=== PATIENT | male | born 1950 | race Caucasian/White ===

== ENCOUNTER 2020-02-21 16:05 | Emergency (ER) | payer MEDICARE, SELFPAY ==
--- NOTE | ~2020-02-21 | CT_ITS ---
EXAMINATION: CT chst ab pel natalia lum w DATE: 02/21/2020 18:07 INDICATION: Pain at the chest, abdomen, pelvis and right hip after being pinned by a collapsed roof. TECHNIQUE: Computed tomography (CT) of the chest, abdomen and pelvis and thoracic and lumbar spine wa s performed with 100 mL Omnipaque-350 intravenous contrast. Automated exposure control and iterative reconstruction technique were employed. The dose-length product was 3672.34 mGy-cm. COMPARISON: None FINDINGS: Chest and thoracic spine: Calcified nodules in the right lower lobe and calcified mediastinal lymph nodes consistent with old g ranulomatous disease. Lungs are otherwise clear with no pneumonia, pulmonary edema or other pulmonary infiltrates. No pleural effusion or pneumothorax. Heart size is normal. No pericardial effusion. Tho racic aorta is normal in caliber with no dissection or acute traumatic aortic injury. No pathological ly enlarged thoracic lymphadenopathy. Mild thoracic spondylosis with bridging osteophytes at multiple levels in the thoracic and lower cervical spine consistent with diffuse idiopathic skeletal hyperost osis (DISH). No acute osseous abnormality in the chest or thoracic spine. Likely symmetric fatty atro phy of the bilateral subscapularis muscles which could be due to innervation changes or chronic rotat or cuff tears. Mild bilateral gynecomastia. Abdomen, pelvis and lumbar spine: Liver, gallbladder, spleen, pancreas, bilateral adrenal glands and right kidney are normal. 1 mm nono bstructing stone at the lower pole of the left kidney. Bowels including the appendix are normal. Blad salvador is normal. No free intraperitoneal gas or fluid. No pathologically enlarged abdominal or pelvic l ymphadenopathy. Small fat-containing right inguinal hernia. Combined instrumented anterior and stock raiser ior spinal fusion at L5-S1 which is fused with residual grade 1 anterolisthesis. Chronic bilateral L5 pars interarticularis defects. 2 mm retrolisthesis L1 on L2, L2 on L3 and L4 on L5. Mild disc height loss at T12-L1. No acute osseous abnormality in the lumbar spine or pelvis. IMPRESSION: 1. No acute fracture or acute intrathoracic, abdominal or pelvic process. 2. Nonobstructing 1 mm left renal stone. 3. Mild thoracic and lumbar spondylosis with instrumented anterior and posterior spinal fusion at L5- S1 for chronic spondylolysis. Reviewed, dictated and finalized at location A. IMPRESSION: 1. No acute fracture or acute intrathoracic, abdominal or pelvic process. 2. Nonobstructing 1 mm left renal stone. 3. Mild thoracic and lumbar spondylosis with instrumented anterior and posterio r spinal fusion at L5-S1 for chronic spondylolysis.
--- NOTE | ~2020-02-21 | XR_ITS ---
EXAMINATION: XR forearm RT 2V, XR wrist RT min 3V DATE: 02/21/2020 17:40 INDICATION: Right wrist and forearm pain and abrasions postoperative collapse TECHNIQUE: 1. Posteroanterior, ulnar deviation, oblique, and lateral views of the right wrist were obtained. 2. Anteroposterior and lateral views of the right forearm were obtained. COMPARISON: none FINDINGS: Bone alignment is normal from the right elbow through the wrist and visualized right hand. No fractur e. Mild polyarticular osteoarthritis at the right elbow and radial aspect of the carpus. Soft tissue swelling over the dorsal aspect of the mid to distal forearm. There are few foci of lucent gas in the underlying soft tissues consistent with provided history of abrasions. No right elbow joint effusion . IMPRESSION: 1. No acute osseous abnormality. Reviewed, dictated and finalized at location A. IMPRESSION: 1. No acute osseous abnormality.
[2020-02-21 16:21] VITALS: BP 148/72; PULSE 68; RESP 18; TEMP 37; O2SAT 98
[2020-02-21] MEDS: TETANUS,DIPHTHERIA,AC PERTUSSIS ADULT 0.5 ML (ADACEL) IM (16:41)
[2020-02-21] MEDS: NEOMYCIN/POLYMYXIN/BACITRACIN OINTMENT 15 GM TUBE 1 APPLIC TOPICAL (17:00)
[2020-02-21 17:18] LABS: Hematocrit 43.8 % (37.0-46.0); Hemoglobin 14.6 g/dL (12.4-15.3); Mean Corpuscular HGB Conc 33.3 g/dL (32.0-36.0); Mean Corpuscular Hemoglobin 30.4 pg (27.0-31.0); Mean Corpuscular Volume 91.3 fL (78.0-102.0); Mean Platelet Volume 9.9 fl (8.7-11.0); Platelet Count Result 187 K/mm3 (150-420); Red Cell Distribution Width 12.9 % (11.6-14.4); White Blood Count 8.4 K/mm3 (4.8-10.8)
[2020-02-21 17:19] LABS: Add Urine Microscopic? YES; Appearance Urine Clear (Clear); Bilirubin Urine Negative (Negative); Blood Urine Negative (Negative); Color Urine Yellow (Yellow); Glucose Urine UA Negative (Negative); Ketones Urine Negative (Negative); Leukocyte Esterase Ur Negative (Negative); Nitrate Urine Negative (Negative); Protein Urine Trace (Negative); Specific Grav Ur >= 1.030 (1.010-1.020); Urobilinogen Urine 0.2 mg/dL (0.2-1.0); pH Urine 5.5 (5.0-8.0)
[2020-02-21 17:24] LABS: RBC Urine 0-2 /hpf (0-2); Squamous Epithelial Cell Urine Rare /hpf (Few); WBC Urine 0-3 /hpf (0-3)
[2020-02-21 17:25] LABS: Bacteria Urine Trace /hpf; Other Sediment Urine Spermatazoa /hpf
[2020-02-21 17:34] LABS: Alanine Aminotransferase 38 U/L (16-63); Albumin Level 4.1 g/dL (3.4-5.0); Anion Gap 9.1 mmol/L (7-16); Aspartate Amino Transferase 31 U/L (15-37); Bilirubin,Total 0.6 mg/dL (0.00-1.00); Blood Urea Nitrogen 24 mg/dL (7-18); Calcium 9.7 mg/dL (8.5-10.1); Carbon Dioxide 33 mmol/L (21-32); Chloride 104 mmol/L (98-108); Estimated CRCL calculation 57 ml/min; Estimated Glomerular Filt Rate 53; Glucose 105 mg/dL (70-99); Osmolality Calculated 298 mOsm/kg (285-295); Potassium 4.1 mmol/L (3.5-5.1); Sodium 142 mmol/L (136-145); Total Protein 7.4 g/dL (6.4-8.2)
[2020-02-21 17:57] LABS: Alkaline Phosphatase 113 U/L (46-116)
[2020-02-21 18:04] VITALS: BP 163/88; PULSE 75; RESP 18; O2SAT 98
--- NOTE | 2020-02-21 18:37 | WC.ED.TRAUMA ---
HPI - Trauma General Chief Complaint: Trauma Stated Complaint: roof fell on PT Source: patient Mode of arrival: ambulatory Limitations: no limitations History of Present Illness HPI narrative: Shortly before arrival at 4:21 p.mCarlene Orr had the metal roof of a chicken coup collapse on him. He realized the roof was falling forward towards him, triedz to hold it up while he got out of the way but fell backwards with it pinning his his chest and abdomen. He complains only of pain in his lower back made worse with sitting, improved with lying supine or standing. It is not associated with weakness in extremities. He sustained abrasions to the right arm and forearm. He feels swelling in the right forearm; denies numbness, pain, or tingling in his right hand. He is able to move his fingers and wrist without pain. He also complains of soreness in his right hip and right upper back. He denies headache, confusion, dizziness, shortness of breath, chest pain, abdominal pain, nausea, vomiting, pelvis, or lower extremity pain. Related Data Home Medications Medication Instructions Recorded Confirmed atorvastatin 20 mg PO DAILY 02/21/20 02/21/20 losartan-hydrochlorothiazide 1 tablet PO DAILY 02/21/20 02/21/20 metoprolol succinate 25 mg PO DAILY 02/21/20 02/21/20 Allergies Allergy/AdvReac Type Severity Reaction Status Date / Time No Known Allergies Allergy Verified 02/21/20 16:21 Review of Systems Constitutional: Constitutional: Denies chills and Denies fever(s) ENT: Denies dizziness Cardiovascular: Cardiovascular: Reports no additional cardiovascular complaints Respiratory: Respiratory: Reports no additional respiratory complaints Gastrointestinal: Gastrointestinal: Reports no additional gastrointestinal complaints Genitourinary: Genitourinary: Denies hematuria Musculoskeletal: Musculoskeletal: Reports no additional musculoskeletal complaints Integumentary/Breasts: Skin/Breast: Reports system reviewed and no additional complaints, except as docu Neurologic: Denies confusion and Denies headache(s) Hematologic/Lymphatic: Hematologic/Lymphatic: Denies easy bruising PMFSH Past Medical History Medical History (Updated 02/23/20 @ 12:15 by Dilshad Burgos MD) Hyperlipidemia Hypertension Spondylolisthesis of lumbar region Surgical History Surgical History (Updated 02/23/20 @ 12:15 by Dilshad Burgos MD) History of lumbar laminectomy Social History Social History (Updated 02/23/20 @ 12:16 by Dilshad Burgos MD) 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 Exam Const: Orientation/consciousness: patient oriented x3 Other: Patient walked in. HENMT: Head: no hematomas and no lacerations Ears: TM's normal bilaterally General nose exam: No nasal discharge present Mouth: Yes Normal oral and palatal mucosa present Other: No scalp abrasions, swelling, discoloration or tenderness. Eyes: EOM: EOMs intact bilaterally Neck: Neck: no lymphadenopathy Chest: Chest palpation & inspection: no tenderness Resp: Auscultation: clear to auscultation bilaterally and no wheezes Cardio: Rate: regular rate Rhythm: regular rhythm GI: GI Palp: Yes Soft to palpation, No Tenderness to palpation present (GI), No Guarding due to palpation present (GI) and No Rigid due to palpation : General: Yes no CVA tenderness Back/Spine/Pelvis: Other: Minor tenderness without swelling or bruising, right upper back. Tender over L3 and the paraspinal muscles. Midline scar from L4 down to mid-sacral area Skin: Other: Oblique, linear abrasions across the right posterior-lateral forearm. Large abrasion right mid-posterior forearm overlying a tender and swollen area. Abrasions anterior legs without swelling. Neuro: General: patient oriented x3, moves all extremities and no focal motor deficits Extrem: Other: Moves all joints without complaints of pain Minor tenderness posterior to the r
[2020-02-21 19:11] VITALS: BP 161/91; PULSE 68; RESP 16; O2SAT 98
== END 2020-02-21 19:25 | disposition home or self-care (01) ==
PROVIDERS: Emergency Provider Family Medicine; PCP Family Medicine
DX: S50.01XA Contusion of right elbow, initial encounter (principal); S70.01XA Contusion of right hip, initial encounter; S39.012A Strain of muscle, fascia and tendon of lower back, initial encounter; S29.012A Strain of muscle and tendon of back wall of thorax, initial encounter; S40.811A Abrasion of right upper arm, initial encounter; S80.812A Abrasion, left lower leg, initial encounter; S80.811A Abrasion, right lower leg, initial encounter; W20.1XXA Struck by object due to collapse of building, initial encounter
CPT/HCPCS: 36415; 71260; 72129; 72132; 73090; 73110; 74177; 80053; 81001; 85027; 90471; 90715; 99283; 99284; A9270; Q9965

== ENCOUNTER 2020-02-28 15:56 | Outpatient (RCR) | payer MEDICARE, SELFPAY ==
--- NOTE | 2020-03-06 21:26 | PTOPEVAL ---
Thank you for referring Kirby Hannah to [facility]. Please review, sign, date and return this plan of care MAXINE. I agree with and certify that the following plan of care is medically necessary. Referring Physician Date Admitting Provider: Attending Provider: Michael Chapman MD Referring Provider: *PT Outpatient Evaluation Start: 02/28/20 16:13 Freq: Status: Active Protocol: Document 02/28/20 16:15 JTF (Rec: 02/28/20 16:55 J [id number]) Therapy Assessment Status Assessment Status Assessment Status Evaluation Outpatient Past Medical History Cardiovascular History Hx Hypercholesterolemia Yes Hx Hypertension Yes Respiratory History Hx Sleep Apnea Yes Musculoskeletal History Hx Other Musculoskeletal Disorders Yes: back surgery Evaluation Information Problem Diagnosis low back pain Onset 02/21/20 Additional Evaluation Detail oswestry = 20% Subjective Information patient reports he injured his Query Text:As Reported By Patient/ back about a week ago when he Family was pinned under a collapsed building. he reports he was at his house tearing down a chicken house when the roof came loose and pinned him down . he reports he was pinned for about 10 minutes. he reports he felt he injured his back when he slammed into the ground. he reports no ntb into the legs. he reports he has a history of fusion to the lumbar spine. he reports his L5-S1 is fused. he reports he has increased pain in the back when lying down in a soft bed . he reports he has been wearing a back brace since the accident. he reports the pain is centralizing to his lumbar spine. Prior Level of Function Comments Additional Prior Level of Function patient reports prior to his Comments injury, he had no issues in the back. he reports he is active around his home. Pain Assessment Timing of Pain Assessment Timing of Pain Assessment Assessment Pain Scale Pain Scale Used Numeric (1 - 10) Self Report Pain Assessment Lower Back Reported Pain Level 2 Pain Description Feng
== END 2020-03-28 14:35 | disposition home or self-care (01) ==
LOC: CHSPT 15:56
PROVIDERS: PCP Family Medicine; Visit Provider Family Medicine
DX: M54.5 Low back pain (principal)
CPT/HCPCS: 97014; 97110; 97140; 97161; G0283

== ENCOUNTER 2021-04-16 09:55 | Outpatient (CLI) | payer MEDICARE, SELFPAY ==
[2021-04-16 11:04] LABS: SARS-CoV-2 RNA PCR Negative (Negative)
== END 2021-04-16 09:56 | disposition home or self-care (01) ==
LOC: CHSLAB 10:00
PROVIDERS: PCP Family Medicine; Visit Provider Family Medicine
DX: R05 Cough (principal); Z20.822 Contact with and (suspected) exposure to COVID-19
CPT/HCPCS: C9803; U0003; U0005

== ENCOUNTER 2021-11-14 07:47 | Outpatient (CLI) | payer MEDICARE, SELFPAY ==
[2021-11-14 08:53] LABS: SARS-CoV-2 Ag Negative (Negative)
== END 2021-11-14 07:48 | disposition home or self-care (01) ==
LOC: CHSLAB 07:50
PROVIDERS: PCP Family Medicine; Visit Provider Family Medicine
DX: R05.9 Cough, unspecified (principal); Z20.822 Contact with and (suspected) exposure to COVID-19
CPT/HCPCS: 87426; C9803

== ENCOUNTER 2022-05-20 10:21 | Outpatient (CLI) | payer MEDICARE, SELFPAY ==
--- NOTE | ~2022-05-20 | XR_ITS ---
EXAMINATION: XR hip RT min 2V DATE: 05/20/2022 11:13 INDICATION: Right hip pain TECHNIQUE: Two views of right hip were obtained. COMPARISON: None. FINDINGS: Bone alignment is normal. There is no fracture. There is mild osteoarthritis of the right h ip. There are partially imaged surgical changes in the lumbar spine. The soft tissues are unremarkabl e. IMPRESSION: 1. Mild osteoarthritis of the right hip. Reviewed, dictated and finalized at location B.
--- NOTE | ~2022-05-20 | XR_ITS ---
EXAM: XR knee LT 3V DATE: 05/20/2022 11:10 HISTORY: chronic LT pain knee upon initially standing all over , NKI . COMPARISON: None available. FINDINGS: Normal mineralization. No fracture or dislocation. No lytic or blastic lesion. Moderate me dial joint space narrowing. Tricompartmental osteophytosis, severe in the patellofemoral compartment and moderate medial and lateral compartments. No erosion or periosteal change. Soft tissues within no rmal limits. Small knee joint effusion. IMPRESSION: Moderate to severe tricompartmental left knee osteoarthritis. Reviewed, dictated and finalized at location K.
== END 2022-05-20 10:22 | disposition home or self-care (01) ==
LOC: CHSIMG 10:25
PROVIDERS: PCP Family Medicine; Visit Provider Family Medicine
DX: M25.562 Pain in left knee (principal); M25.551 Pain in right hip
CPT/HCPCS: 73502; 73562

== ENCOUNTER 2022-06-09 10:03 | Outpatient (RCR) | payer MEDICARE, SELFPAY ==
--- NOTE | 2022-06-09 11:01 | PTOPEVAL1 ---
Assessment and note entered by Geovany Hwang Evaluation Information Assessment Status Evaluation Diagnosis left knee pain Onset 09/07/21 Subjective Information Pt. reports that he has been having knee pain since September. He reports that he was tiling a field and twisted his knee about that time. He reports that he had mild pain prior to that incident. He reports that pain was located on both the inside and the outside of the left knee. He is taking an anti-inflammatory currently which is helping to ease the knee pain. He currently is not experiencing knee pain. He notes that pain is most notable after he has been active. He reports that his goal is to reduce knee pain. Reported Pain Level Pain Score 0: Self Report Assessment PT Clinical Summary Pt. is a 72 year old male who enters the clinic with left knee pain due to arthritic change. He presents with impaired strength, impaired gait, pain and joint stiffness. Continued treatment is indicated in order to improve these areas to allow the pt. to be able to complete all IADL's with improved comfort and efficiency. Plan of Care Interventions Electrical Stimulation,Gait Training,Hot Pack/Cold Pack,Manual Therapy,Neuro Re-education, Therapeutic Activities,Therapeutic Exercise PT Services Indicated Yes Treatment Frequency and 1x/week x 4 weeks Duration These treatments will address the objective and functional deficits as defined above. The patient will be advanced safely and appropriately in order for the patient to progress towards his/her prior level of function. Additional exercises will be introduced and as well as a comprehensive home exercise program upon discharge, if needed, ?to ensure carryover of functional gains achieved in the clinic. This treatment plan has been reviewed and agreement upon by the patient.
== END 2022-06-30 13:41 | disposition home or self-care (01) ==
LOC: CHSPT 10:03
DX: M17.9 Osteoarthritis of knee, unspecified (principal)
CPT/HCPCS: 97110; 97161

== ENCOUNTER 2022-09-02 13:51 | Emergency (ER) | payer MEDICARE, SELFPAY ==
--- NOTE | 2022-09-02 13:55 | ED.URI ---
HPI - URI/Sore Throat General Chief Complaint: Upper Respiratory Infection Stated Complaint: head cold Time Seen by Provider: 09/02/22 14:08 Source: patient and RN notes reviewed Mode of arrival: ambulatory Limitations: no limitations History of Present Illness HPI Narrative: 72-year-old male presents with concern for 3-4 day history nasal congestion, rhinorrhea, she cough. Reports symptoms got worse last night. He has been using saline rinses and Mucinex. He denies fever, chills, sweats, body aches MD elicited complaint: cough and sore throat Related Data Home Medications Medication Instructions Recorded Confirmed atorvastatin 20 mg tablet 20 mg PO DAILY 02/21/20 02/21/20 losartan 50 mg-hydrochlorothiazide 1 tablet PO DAILY 02/21/20 02/21/20 12.5 mg tablet metoprolol succinate 25 mg 25 mg PO DAILY 02/21/20 02/21/20 tablet,extended release 24 hr meloxicam 7.5 mg tablet mg 09/02/22 Allergies Allergy/AdvReac Type Severity Reaction Status Date / Time No Known Allergies Allergy Verified 02/11/22 14:43 Review of Systems Review of Systems: CONSTITUTIONAL: Denies malaise, chills, sweats, or fever. EYES: Denies visual changes, redness, or discharge. ENT: Reports rhinorrhea, congestion. Denies sinus pain, otalgia and sore throat. CARDIOVASCULAR: Denies chest pain, palpitations, or edema. RESPIRATORY: Reports cough. Denies dyspnea. GASTROINTESTINAL: Denies abdominal pain, nausea, vomiting, diarrhea SKIN: Denies rash or itching. MUSCULOSKELETAL: Denies myalgia. NEUROLOGIC: Denies headache. All systems reviewed & are unremarkable except as noted in HPI and below PMFSH Past Medical History Medical History (Updated 09/02/22 @ 14:25 by Samira Colin NP) Hyperlipidemia Hypertension Spondylolisthesis of lumbar region Surgical History Surgical History (System 02/11/22 @ 14:43 by Foster Fisher) History of lumbar laminectomy Family History Family History (System 02/11/22 @ 14:43 by Foster Fisher) Other Family history of arthritis Family history of malignant neoplasm Family history of mental disorder Hypertension Social History Social History (System 02/11/22 @ 14:43 by Foster Fisher) Smoking status: Former smoker Alcohol intake: current 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 Comments At time of signature, agree with nursing past medical, surgical, social and family history. There is no relevant family history pertinent to the presenting complaint Exam Narrative: GENERAL: Well-appearing, well-nourished, and in no acute distress. HEAD: Normocephalic EYES: PERRLA, conjunctivae clear ENT: Nares clear, turbinates edematous and erythematous, clear discharge. Mucous membranes moist. TM pearly pa with sharp light reflex bilaterally; no tragal tenderness. Oropharynx not erythematous without lesions. Tonsils not enlarged and without exudate, no drooling, no hoarseness, no trismus, uvula midline. NECK: Supple. No lymphadenopathy CHEST: Clear to auscultation, breath sounds equal. No wheezing, rhonchi, rales, or stridor. No respiratory distress, speaks in full sentences. HEART: Regular rate and rhythm. No murmur heard. SKIN: Warm, dry, no rash. NEURO: Alert and oriented x3. PSYCH: Normal mood and affect Course Course Emergency Course: Patient is aware of diagnosis, understands and agrees to treatment plan. Anticipatory guidance given. Patient agrees to follow-up as directed and is aware of reasons to seek care at the emergency department. Portions of this record may have been created with voice recognition software Level of Care: Express Care Visit Vital Signs Vital signs: Reviewed. MDM - URI/Sore Throat MDM Narrative Medical decision making narrative: Differential diagnosis considered: Sunshine virus, strep pharyngitis, allergic rhinitis, upper respiratory tract infection, sinusitis, rhinosinusitis, nasopharyngitis. viral pharyngitis, otitis media, o
[2022-09-02 14:00] VITALS: BP 149/82; PULSE 82; RESP 16; TEMP 36.2; O2SAT 99
== END 2022-09-02 14:29 | disposition home or self-care (01) ==
PROVIDERS: Emergency Provider Nurse Practitioner; PCP Family Medicine
DX: J06.9 Acute upper respiratory infection, unspecified (principal); R05.9 Cough, unspecified; Z20.822 Contact with and (suspected) exposure to COVID-19; Z87.891 Personal history of nicotine dependence; E78.5 Hyperlipidemia, unspecified; I10 Essential (primary) hypertension; M43.16 Spondylolisthesis, lumbar region
CPT/HCPCS: 87426; 87804; 99213; C9803; G0463

== ENCOUNTER 2023-09-26 10:45 | Emergency (ER) | payer MEDICARE, SELFPAY ==
[2023-09-26 10:55] VITALS: BP 141/79; PULSE 69; RESP 16; TEMP 37.8; O2SAT 98
--- NOTE | 2023-09-26 11:44 | ED.GENADULT ---
HPI - General Adult General Chief complaint: Upper Respiratory Infection Stated complaint: Congestion/Sore Throat/Cough/Fever Source: patient Mode of arrival: ambulatory Limitations: no limitations History of Present Illness HPI narrative: Patient presents for evaluation of sick symptoms. He initially had a scratchy throat 5 days ago. He then developed a dry cough, wheezing, headache, fatigue, and fever. No nausea, vomiting, diarrhea, or SOB. He took some nyquil which helped him get some rest. No recent specific sick contacts however he went to a meeting at which there was a large crowd. He does not smoke. Related Data Home Medications Medication Instructions Recorded Confirmed atorvastatin 20 mg tablet 20 mg PO DAILY 02/21/20 02/21/20 losartan 50 mg-hydrochlorothiazide 1 tablet PO DAILY 02/21/20 02/21/20 12.5 mg tablet metoprolol succinate 25 mg 25 mg PO DAILY 02/21/20 02/21/20 tablet,extended release 24 hr Allergies Allergy/AdvReac Type Severity Reaction Status Date / Time No Known Allergies Allergy Verified 09/26/23 10:54 Review of Systems Review of Systems: CONSTITUTIONAL: Reports fever. Denies chills, or sweats. EYES: Denies visual changes, redness, or discharge. ENT: Reports sinus congestion CARDIOVASCULAR: Denies chest pain, palpitations, or edema. RESPIRATORY: Reports cough. Denies dyspnea. GASTROINTESTINAL: Denies abdominal pain, nausea, vomiting, or diarrhea. GENITOURINARY: Denies dysuria or hematuria. SKIN: Denies rash or itching. MUSCULOSKELETAL: Denies back pain, joint pain, or myalgia. NEUROLOGIC: Reports headache, Denies numbness, dizziness, or weakness. PSYCHIATRIC: Denies anxiety or depression. 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 Gender identity (if verbalized by the patient): Male Sexual Orientation (if Verbalized by the Patient): Straight or Heterosexual Spiritual care concerns: No Exam Narrative: GENERAL: Well-appearing, well-nourished, and in no acute distress. HEAD: Normocephalic, atraumatic. EYES: PERRLA and EOMI. ENT: Nares clear, no rhinorrhea or epistaxis. Mucous membranes moist. Oropharynx without tonsillar hypertrophy exudate or other lesions. Bilateral TMs pearly pa nonbulging NECK: Supple. No adenopathy or masses. No carotid bruits or JVD CHEST: Cough present on exam. There is wheezing in posterior lung caal bilaterally. HEART: Regular rate and rhythm. No murmur heard. Normal peripheral pulses. ABDOMEN: Soft, nontender, nondistended, normal active bowel sounds. EXTREMITIES: Normal range of motion. No edema. SKIN: Warm, dry, no rash. NEURO: No focal deficits. Alert and oriented x3. PSYCH: Normal mood and affect. Course Course Emergency Course: This is a 73-year-old male who presented for evaluation of sick symptoms. COVID negative. Influenza A positive. Will treat with Tamiflu. He has wheezing on exam so will treat with prednisone. Saturations are normal. Increase hydration. [id number] agents for symptom management. Follow up with primary provider. Go to the ER for worsening symptoms. Patient in agreement with plan of care. Level of Care: Express Care Visit Vital Signs
== END 2023-09-26 11:52 | disposition home or self-care (01) ==
LOC: EXPBETH 10:49
PROVIDERS: Emergency Provider Nurse Practitioner; PCP Family Medicine
DX: J10.1 Influenza due to other identified influenza virus with other respiratory manifestations (principal); Z20.822 Contact with and (suspected) exposure to COVID-19; Z87.891 Personal history of nicotine dependence; E78.5 Hyperlipidemia, unspecified; I10 Essential (primary) hypertension; M43.16 Spondylolisthesis, lumbar region
CPT/HCPCS: 87081; 87426; 87804; 87880; 99213; G0463

== ENCOUNTER 2023-12-22 09:30 | Outpatient (RCR) | payer MEDICARE, SELFPAY ==
--- NOTE | 2023-12-22 11:24 | OPREHPOC ---
Outpatient Therapy Plan of Care This is a Multidisciplinary Plan of Care that may contain components documented by all disciplines (PT, OT, and ST.) PT Problem 1 PT Problem #1 Knowledge Deficit PT Goal 1 Goal Patient to demonstrate independence with HEP Target Visit 5 PT Problem 2 PT Problem #2 Pain PT Goal 1 Goal 1. Patient to report highest pain at 2/10 2. Patient to report ability to sleep with no disturbance due to low back pain Target Visit 10 PT Problem 3 PT Problem #3 Impaired Strength PT Goal 1 Goal 1. Patient to demonstrate 5/5 B hip strength to return to lifting for house hold tasks 2. Patient to demonstrate 4/5 core strength to return to yard maintenance without increase in pain Target Visit 10 PT Problem 4 PT Problem #4 Impaired Functional Mobil PT Goal 1 Goal 1. Patient to score <20% disability on Back Index 2. Patient to demonstrate ability to fern picker object off of ground with no increase in low back pain 3. Patient to report ability to work in his yard > 1 hour without increase in low back pain Target Visit 10
--- NOTE | 2023-12-22 11:24 | PTOPEVAL1 ---
Assessment and note entered by Lucy Crowe DPT Evaluation Information Assessment Status Evaluation Diagnosis low back pain, SIJ pain Onset 12/15/23 Subjective Information Patient reports about a month ago he felt like he mis-stepped and felt a jar and pinch in his back . He reports for the next week he had decreased mobility and increased pain. He reports he then started a muscle relaxer and after a week pain somewhat subsided. He has seen an ortho and was given a round of steroids and an order for PT. Patient reports pain is at the R SIJ but denies radiating pain. Patient reports that twisting and lifting increase his pain. He reports he is using a brace when he is doing heavy work. 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 He does not have a follow up with ortho for his back. He is scheduled for a knee replacement in February. Reported Pain Level Pain Score 5: Self Report Assessment PT Clinical Summary Mr. Hannah is a 73 year old male who presents to PT with low back pain s/p L2-3 discectomy. He demonstrates decreased B LE strength, impaired gait mechanics and elevated pain levels leading to difficulty with standing for house hold tasks and ambulating prolonged distances for grocery shopping and yard work. He would benefit from skilled PT to address impairments and return to PLOF. Plan of Care Interventions Electrical Stimulation,Gait Training,Hot Pack/Cold Pack,Manual Therapy,Mechanical Traction,Neuro Re- education,Patient/Caregiver Educati,Therapeutic Activities,Therapeutic Exercise PT Services Indicated Yes Treatment Frequency and 2x weekly for 10 visits Duration These treatments will address the objective and functional deficits as defined above. The patient will be advanced safely and appropriately in order for the patient to progress towards his/her prior level of function. Additional exercises will be introduced and as well as a comprehensive home exercise program upon discharge, if needed, ?to ensure carryover of functional gains achieved in the clinic. This treatment plan has been reviewed and agreement upon by the patient.
--- NOTE | 2024-01-21 11:56 | OPREHPOC ---
Outpatient Therapy Plan of Care This is a Multidisciplinary Plan of Care that may contain components documented by all disciplines (PT, OT, and ST.) PT Problem 1 PT Problem #1 Knowledge Deficit PT Goal 1 Goal Patient to demonstrate independence with HEP Target Visit 5 Progress Met PT Problem 2 PT Problem #2 Pain PT Goal 1 Goal 1. Patient to report highest pain at 2/10 2. Patient to report ability to sleep with no disturbance due to low back pain Target Visit 10 Progress Met PT Problem 3 PT Problem #3 Impaired Strength PT Goal 1 Goal 1. Patient to demonstrate 5/5 B hip strength to return to lifting for house hold tasks -partially met 2. Patient to demonstrate 4/5 core strength to return to yard maintenance without increase in pain -met Target Visit 10 Progress Partially Met PT Problem 4 PT Problem #4 Impaired Functional Mobil PT Goal 1 Goal 1. Patient to score <20% disability on Back Index 2. 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 Patient to report ability to work in his yard > 1 hour without increase in low back pain Target Visit 10 Progress Met
--- NOTE | 2024-01-21 11:56 | PTOPDC ---
Assessment and note entered by Amanda Tim, PT Evaluation Information Assessment Status Discharge Diagnosis low back pain, SIJ pain Onset 12/15/23 Subjective Information Kirby Hannah reports his low back pain has improved over the course of his PT. He notes he has to be careful lifting and performing too much activity but overall he feels has improved 80%. He will be having his left knee replaced in February 2024. Reported Pain Level Pain Score 2: Self Report Assessment PT Clinical Summary Av Hannah has completed 10 skilled PT visits for low back and SIJ pain. He is reporting an 80% overall improvement since initiating PT. He demonstrates resolved tenderness in the right lower back, improved lumbar AROM, improved core strength, and improved functional abilities. He will be discharged to an independent home exercise program. Plan of Care PT Services Indicated No
== END 2024-01-21 14:47 | disposition home or self-care (01) ==
LOC: CHSPT 09:30
DX: M46.1 Sacroiliitis, not elsewhere classified (principal)
CPT/HCPCS: 97014; 97110; 97140; 97161; 97750; G0283

== ENCOUNTER 2024-01-26 15:20 | Outpatient (RCR) | payer MEDICARE, SELFPAY ==
--- NOTE | 2024-01-26 16:15 | OPREHPOC ---
Outpatient Therapy Plan of Care This is a Multidisciplinary Plan of Care that may contain components documented by all disciplines (PT, OT, and ST.) PT Problem 1 PT Problem #1 Knowledge Deficit PT Goal 1 Goal The patient will be independent in a home exercise program. Target Visit 2 PT Problem 2 PT Problem #2 Impaired Range of Motion PT Goal 1 Goal The patient will demonstrate 0-120 degrees of left knee AROM to improve gait and pre-op ROM. Target Visit 4 PT Problem 3 PT Problem #3 Impaired Strength PT Goal 1 Goal The patient will demonstrate at least 4+/5 left quad, hamstring, and glut strength to increase support for the left knee. Target Visit 4 PT Problem 4 PT Problem #4 Impaired Functional Mobil PT Goal 1 Goal The patient will demonstrate 25% or less self perceived disability per the LEFS. Target Visit 4
--- NOTE | 2024-01-26 16:15 | PTOPEVAL1 ---
Assessment and note entered by Amanda Tim, PT Evaluation Information Assessment Status Evaluation Diagnosis L knee OA, pre-op L TKA Onset 11/27/23 Subjective Information Av Hannah reports he will have his left knee replaced on 02/16/24 due to bone on bone deformity. He notes pain in the left knee worsened about 6 months ago when the cortisone injections quit helping. He is noting pain worse with getting up out of a chair and going up and down stairs. He is taking stairs one at a time currently. He also has a bad right knee and has pain in that one with bending. Reported Pain Level Pain Score 4: Self Report Assessment PT Clinical Summary Kirby Hannah presents with left knee pain due to osteoarthritis. He is scheduled to have his knee replaced on 02/16/24. He is reporting difficulty with going up and down stairs and getting out of chairs. He demonstrates decreased right knee flexion and extension AROM, decreased right knee strength, altered gait, and decreased balance. He will benefit from skilled PT to improve ROM, strength, and balance prior to his surgery. Plan of Care Interventions Electrical Stimulation,Hot Pack/Cold Pack,Manual Therapy,Neuro Re-education,Patient/Caregiver Educati,Therapeutic Activities,Therapeutic Exercise PT Services Indicated Yes Treatment Frequency and 2 times a week for 4 visits Duration These treatments will address the objective and functional deficits as defined above. The patient will be advanced safely and appropriately in order for the patient to progress towards his/her prior level of function. Additional exercises will be introduced and as well as a comprehensive home exercise program upon discharge, if needed, ?to ensure carryover of functional gains achieved in the clinic. This treatment plan has been reviewed and agreement upon by the patient.
--- NOTE | 2024-02-04 09:41 | OPREHPOC ---
Outpatient Therapy Plan of Care This is a Multidisciplinary Plan of Care that may contain components documented by all disciplines (PT, OT, and ST.) PT Problem 1 PT Problem #1 Knowledge Deficit PT Goal 1 Goal The patient will be independent in a home exercise program. Target Visit 2 Progress Met PT Problem 2 PT Problem #2 Impaired Range of Motion PT Goal 1 Goal The patient will demonstrate 0-120 degrees of left knee AROM to improve gait and pre-op ROM. Target Visit 4 Progress Partially Met Comment Met for flexion, progress towards extension PT Problem 3 PT Problem #3 Impaired Strength PT Goal 1 Goal The patient will demonstrate at least 4+/5 left quad, hamstring, and glut strength to increase support for the left knee. Target Visit 4 Progress Met PT Problem 4 PT Problem #4 Impaired Functional Mobil PT Goal 1 Goal The patient will demonstrate 25% or less self perceived disability per the LEFS. Target Visit 4 Progress Not Met Comment progress towards, scored 27.5% today
--- NOTE | 2024-02-04 09:42 | PTOPPROG ---
Assessment and note entered by Amanda Tim, PT Evaluation Information Assessment Status Progress Diagnosis L knee OA, pre-op L TKA Onset 11/27/23 Subjective Information Av Hannah reports his left knee is doing well overall. He does still have stiffness most of the time that is worse first thing in the morning and after prolonged sitting. He notes pain when he first stands up from sitting. He has been performing his home exercises daily and will continue until his surgery that is scheduled for . Assessment PT Clinical Summary Av Hannah has completed 4 skilled PT visits for left knee pain and pre-op PT for a L TKA. He is reporting stiffness in the left knee and pain upon standing. He has been performing his HEP daily. He objectively demonstrates improved left knee extension AROM and improved strength. Left knee flexion AROM has been maintained since initiating PT and is improved by end of the session after stretching. He will be put on hold from skilled PT until his surgery. He was instructed to continue his home exercises. PT will be resumed once his surgeon releases him. Plan of Care Interventions Therapeutic Exercise PT Services Indicated Yes Treatment Frequency and PT on hold until after surgery scheduled for These treatments will address the objective and functional deficits as defined above. The patient will be advanced safely and appropriately in order for the patient to progress towards his/her prior level of function. Additional exercises will be introduced and as well as a comprehensive home exercise program upon discharge, if needed, ?to ensure carryover of functional gains achieved in the clinic. This treatment plan has been reviewed and agreement upon by the patient.
--- NOTE | 2024-02-23 16:02 | OPREHPOC ---
Outpatient Therapy Plan of Care This is a Multidisciplinary Plan of Care that may contain components documented by all disciplines (PT, OT, and ST.) PT Problem 1 PT Problem #1 Knowledge Deficit PT Goal 1 Goal The patient will be independent in a home exercise program. Target Visit 2 Progress Met PT Problem 2 PT Problem #2 Impaired Range of Motion PT Goal 1 Goal The patient will demonstrate 0-120 degrees of left knee AROM to improve gait. Target Visit 24 Progress Partially Met PT Problem 3 PT Problem #3 Impaired Strength PT Goal 1 Goal The patient will demonstrate at least 4+/5 left quad, hamstring, and glut strength to increase support for the left knee. Target Visit 24 Progress Met PT Problem 4 PT Problem #4 Impaired Functional Mobil PT Goal 1 Goal 1. The patient will demonstrate 25% or less self perceived disability per the LEFS. 2. The patient will complete 1,200 feet of ambulation during the 6 minute walk test with the least restrictive assistive device to improve community ambulation. 3. The patient will ascend and descend stairs reciprocally with 2/10 or less left knee pain. Target Visit 24 Progress Not Met
--- NOTE | 2024-02-23 16:02 | PTOPREEVAL ---
Assessment and note entered by Amanda Tim, PT Evaluation Information Assessment Status Re-evaluation Diagnosis s/p L TKA Onset 02/16/24 Subjective Information Don reports he had his left knee replaced on . He spent one night in the hospital. He has been using a CPM about 2 hours a day all at once. He did not have home health PT. He has been doing some exercises at home consisting of standing leg kicks and modified squats. He has been using pain medication about 2 times a day. He notes difficulty sleeping, moving his knee, walking, and going up and down stairs. He has been using a walker since surgery. Reported Pain Level Pain Score 4: Self Report Assessment PT Clinical Summary Kirby Hannah presents for re-evaluation today after having his left knee replaced on 02/16/24. He is noting difficulty moving his knee, walking, standing, and going up and down stairs. He demonstrates decreased left knee AROM, decreased left knee and hip strength, impaired gait, and decreased functional abilities. He will benefit from skilled PT to address these limitations. Plan of Care Interventions Electrical Stimulation,Gait Training,Hot Pack/Cold Pack,Intermittent Compression,Manual Therapy, Neuro Re-education,Patient/Caregiver Educati, Therapeutic Activities,Therapeutic Exercise PT Services Indicated Yes Treatment Frequency and 2 times a week for 24 visits Duration These treatments will address the objective and functional deficits as defined above. The patient will be advanced safely and appropriately in order for the patient to progress towards his/her prior level of function. Additional exercises will be introduced and as well as a comprehensive home exercise program upon discharge, if needed, ?to ensure carryover of functional gains achieved in the clinic. This treatment plan has been reviewed and agreement upon by the patient.
--- NOTE | 2024-03-18 08:48 | OPREHPOC ---
Outpatient Therapy Plan of Care This is a Multidisciplinary Plan of Care that may contain components documented by all disciplines (PT, OT, and ST.) PT Problem 1 PT Problem #1 Knowledge Deficit PT Goal 1 Goal The patient will be independent in a home exercise program. Target Visit 2 Progress Met PT Problem 2 PT Problem #2 Impaired Range of Motion PT Goal 1 Goal The patient will demonstrate 0-120 degrees of left knee AROM to improve gait. Target Visit 24 Progress Partially Met PT Problem 3 PT Problem #3 Impaired Strength PT Goal 1 Goal The patient will demonstrate at least 4+/5 left quad, hamstring, and glut strength to increase support for the left knee. met Target Visit 24 Progress Met PT Problem 4 PT Problem #4 Impaired Functional Mobil PT Goal 1 Goal 1. The patient will demonstrate 25% or less self perceived disability per the LEFS. met 2. The patient will complete 1,200 feet of ambulation during the 6 minute walk test with the least restrictive assistive device to improve community ambulation. not met 3. The patient will ascend and descend stairs reciprocally with 2/10 or less left knee pain. met Target Visit 24 Progress Partially Met
--- NOTE | 2024-03-18 08:49 | PTOPDC ---
Assessment and note entered by JT File, PT Evaluation Information Assessment Status Discharge Diagnosis s/p L TKA Onset 02/16/24 Subjective Information patient reports he feels pretty good. he reports he is not using the cane. he reports he will take it sometimes on uneven terrain. he reports he does not follow up with the ortho until the first week of april. Reported Pain Level Pain Score 0: Self Report Assessment PT Clinical Summary Carlene cherry presents to skilled PT for his 10th skilled PT visit since his L TKA. he presents with little to no pain in the L knee, full L knee flexion and near full L knee extension rom, ambulation with reciprocal mechanics and no AD, reciprocal ambulation up and down steps, achievement of strength goals, and achievement of LEFS goal. he was educated in the needs to continue to work on HEP at home, but he will be DC 'd from skilled PT services at this time. patient was also instructed to follow up with PT if any concerns of regression arise. Plan of Care PT Services Indicated Yes
== END 2024-03-18 10:44 | disposition home or self-care (01) ==
LOC: CHSPT 15:20
PROVIDERS: Visit Provider Orthopaedic Surgery
DX: M17.12 Unilateral primary osteoarthritis, left knee (principal)
CPT/HCPCS: 97014; 97110; 97150; 97161; 97164; G0283

== ENCOUNTER 2024-03-07 13:45 | Emergency (ER) | payer MEDICARE, SELFPAY ==
[2024-03-07 13:56] VITALS: BP 137/62; PULSE 72; RESP 16; TEMP 36; O2SAT 98
--- NOTE | 2024-03-07 14:09 | ED.SKABFB ---
HPI - Skin/Abscess/Foreign Bdy General Chief complaint: Skin/Abscess/Foreign Body Stated complaint: Insect bite on back spreading Source: patient, RN notes reviewed and old records reviewed Mode of arrival: ambulatory Limitations: no limitations History of Present Illness HPI narrative: 74-year-old male to [facility] with complaint spider bite to right upper back. Patient states bite occurred while sleeping 3 nights ago. Patient states that the discomfort of the bite woke him from his sleep. Patient reports that his cleaned the area and placed a bandage over it that evening and that he noticed increased redness, swelling, itching and discomfort the following day. patient reports keeping it clean, dry, and uncovered since then. Patient states he went to be seen to rule out concern for infection. Patient denies fever, body aches nausea, vomiting, headache, allergies. Patient in no acute distress. Related Data Home Medications Medication Instructions Recorded Confirmed atorvastatin 20 mg tablet 10 mg PO DAILY 02/21/20 02/21/20 losartan 50 mg-hydrochlorothiazide 1 tablet PO DAILY 02/21/20 02/21/20 12.5 mg tablet metoprolol succinate 25 mg 25 mg PO DAILY 02/21/20 02/21/20 tablet,extended release 24 hr CORWIN-COLACE 03/07/24 aspirin 81 mg tablet mg PO 03/07/24 ferrous sulfate 03/07/24 hydrocodone 5 mg-acetaminophen 325 tablet 03/07/24 mg tablet Allergies Allergy/AdvReac Type Severity Reaction Status Date / Time No Known Allergies Allergy Verified 09/26/23 10:54 Review of Systems Review of Systems: All systems reviewed & are unremarkable except as noted in HPI and below Constitutional: Constitutional: Reports as per HPI, Denies body ache(s), Denies chills, Denies excessive sweating, Denies fatigue, Denies fever(s) and Denies headache(s) Eyes: Eyes: Reports no additional eye complaints ENT: Reports system reviewed and no additional complaints, except as documented Cardiovascular: Cardiovascular: Reports no additional cardiovascular complaints, Denies chest pain and Denies dyspnea Respiratory: Respiratory: Reports no additional respiratory complaints, Denies cough and Denies dyspnea Musculoskeletal: Musculoskeletal: Reports no additional musculoskeletal complaints Integumentary/Breasts: Skin/Breast: Reports erythema and Reports wounds Comments: Patient endorses erythematous area around known spider bite to right upper back Neurologic: Reports system reviewed and no additional complaints, except as documented Psychiatric: Psychiatric: Reports no additional psychiatric complaints PMFSH Past Medical History Medical History Hyperlipidemia Hypertension Spondylolisthesis of lumbar region Surgical History Surgical History History of lumbar laminectomy Family History Family History Other Family history of arthritis Family history of malignant neoplasm Family history of mental disorder Hypertension Social History Social History Smoking status: Former smoker Alcohol intake: current Substance use: never Living arrangements: with family 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 Gender identity (if verbalized by the patient): Male Sexual Orientation (if Verbalized by the Patient): Straight or Heterosexual Spiritual care concerns: No Comments At the time of my signature, I reviewed and agree with the nursing past medical, surgical, social, and family history. There is no relevant family history pertinent to the patient complaint. Exam Const: General: cooperative, healthy appearing, comfortable, no acute distress, alert and well nourished Nutritional Appearance: well nourished Orientat
== END 2024-03-07 14:39 | disposition home or self-care (01) ==
PROVIDERS: Emergency Provider Nurse Practitioner Family; PCP Family Medicine
DX: S20.461A Insect bite (nonvenomous) of right back wall of thorax, initial encounter (principal); W57.XXXA Bitten or stung by nonvenomous insect and other nonvenomous arthropods, initial encounter; Z87.891 Personal history of nicotine dependence; E78.5 Hyperlipidemia, unspecified; I10 Essential (primary) hypertension; M43.16 Spondylolisthesis, lumbar region
CPT/HCPCS: 99211; G0463

== ENCOUNTER 2024-10-23 15:16 | Emergency (ER) | payer MEDICARE, SELFPAY ==
--- OUTSIDE RECORDS SUMMARY | 2024-10-23 15:18 | XMS_ITS | Referral Summary ---
Author Organization [facility] [address] Address [address] [place] [address] Care Team Providers Care Manager City Name Role Phone Michael Chapman MD Primary Care Provide r Encounters Date Type Department Care Team Description 09/13/2024 1:00 PM FUNERAL HOME ASSOCIATE Office Visit [facility] Ophthalmology [facility] [address] [place] [phone] Ngozi Kam MD PhD Cystoid macular edema of left eye (Primary Dx) 08/03/2024 8:30 AM FUNERAL HOME ASSOCIATE Office Visit [facility] Ophthalmology [address] [place] [address] [phone] Ngozi Kam MD PhD Cystoid macular edema of left eye (Primary Dx) from Last 3 Months Allergies No known active allergies Medications atorvastatin (LIPITOR) 10 mg tabletIndication s:hyperlipidemia Take 1 tablet (10 mg total) by mouth nightly 9 Active metoprolol XL (TOPROL-XL) 50 mg extended release tablet Take 1 tablet (50 mg total) by mouth daily Active losartan-hydroch lorothiazide (HYZAAR) 100-25 mg per tablet Take 1 tablet by mouth daily Active aspirin 81 mg enteric coated tabletIndication s:Myocardial Reinfarction Prevention Take 1 tablet (81 mg total) by mouth 2 (two) times a day 30 tablet 4 Active senna-docusate (PERICOLACE) 8.6-50 mg Take 1-2 tablets daily prn for constipation 30 tablet 4 Active HYDROcodone-acet aminophen (NORCO) 5-325 mg per tabletIndication s:Pain Take 1 tablet by mouth every 4 (four) hours as needed for pain 40 tablet 4 Active Active Problems Problem Noted Date Diagnosed Date Cystoid macular edema of left eye 05/31/2024 Assessment & Plan (05/31/2024 2:57 PM CDT): Marked central cystoid macular edema (CME) with decreased visual acuity (VA) per patient 1.5 months ago. 2/2 radiation retinopathy with CWS and mild irh on exam. Discussed R/B/A of anti-VEGF and patient wishes to proceed. Radiation retinopathy, sequela 05/31/2024 S/P total knee replacement, left 02/16/2024 Primary osteoarthritis of left knee 01/21/2024 Refractive error 05/04/2023 Assessment & Plan (01/08/2024 9:22 AM CDT): Release updated glasses Rx Assessment & Plan (05/04/2023 9:14 AM CDT): Minimal change in MRx today, updated SRx for PAL. 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 Kam. Assessment & Plan (05/04/2023 9:13 AM CDT): Return as scheduled for 4 mo f/u w/ Dr. Kam 07/21/23. Assessment & Plan (11/13/2022 1:50 PM FUNERAL HOME ASSOCIATE): Status post external plaque radiation, noted to be class 1A PRAME negative recommend observation today. I have asked that he return to see Dr. Kam in 4-6 months. Assessment & Plan (02/15/2022 8:10 AM CDT): POD1 following EPR removal and muscle reinsertion OS Doing well, vision limited by RD/tumor. Start PF with taper 4-3-2-1-0 weekly, and tobra QID x1 week. Return precautions discussed. Assessment & Plan (02/11/2022 10:15 AM CDT): Post op day #1 status post (s/p)EPR with disinsertion rectus muscle and TV FNAB the left eye. Doing well. Tobradex ointment QID the left eye Lead Shield at all times Follow up for EPR removal as scheduled Thursday Tylenol/Advil PRN pain Immunizations Immunization Administration Dates Next Due Influenza, Quadrivalent, Hig h Dose, Preservative Free, Intrr 07/09/2021 Influenza, Quadrivalent, Split, Intramuscular Tdap 02/24/2020,02/21/2020 Social History Tobacco Use Types Packs/Day Years Used Date Smoking Tobacco: Never Smokeless Tobacco: Never Alcohol Use Standard Drinks/Week Comments No 0 (1 standard drink = 0.6 oz pur e alcohol) AUDIT-C Answer Date Recorded Q1: How often do you have a drink containing alc ohol? 2-4 times a month 02/16/2024 Q2: How many drinks containi ng alcohol do you have on a typical day when you are drinking? 1 or 2 02/16/2024 Q3: How often do you have si x or more drinks on one occasion? Never 02/16/2024 Personal Safety Answer Date Recorded Have you ever been in or are you currently in a harmful physical or emotional relationship or is someone making you feel afraid or unsafe? Denies 02/16/2024 Sex and Gender Information Value Date Recorded Sex Assigned at Not on file Legal Sex Male 6:57 PM FUNERAL HOME ASSOCIATE Gender Identity Not on file Sexual Orientation Not on file Last Filed Vital Signs Vital Sign Reading Time Taken Comments Blood Pressure 147/82 04/18/2024 9:52 AM CDT Pulse 56 04/18/2024 9:52 AM CDT Temperature 36.6 C (97.9 F) 04/18/2024 9:52 AM CDT Respiratory Rate 18 04/18/2024 9:52 AM CDT Oxygen Saturation 100% 04/18/2024 9:52 AM CDT Inhaled Oxygen Concentration - - Weight 99.6 kg (219 lb 9.6 oz) 04/18/2024 9:52 A M CDT Height 177.8 cm (5' 10 ) 04/11/2024 8:44 AM CDT Body Mass Index 31.51 04/11/2024 8:44 AM CDT Plan of Treatment Not on file Medical Devices Implanted Type Area Carburetor Specialist Device Identifier Shelf Expiration Date Model / Serial / Lot [employer]uy [employer] Attune Cruciate Retain Cementless Knee Left 7 Component Femoral [id number] - [id number] Implanted:Qty: 1 on 02/16/2024 by Chaim Olea MD at [facility] Left: Knee [employer] 10/07/2031 [id number] / / [id number] [employer] Attune Fb Tib Base Sz 7 Por [id number] - [id number] Implanted:Qty: 1 on 02/16/2024 by Chaim Olea MD at [facility] Left: Knee [employer] 11/04/2033 [id number] / / [id number] [employer] Insert Attune Left Medial Stabilized Size 7 5mm [id number] - [id number] Implanted:Qty: 1 on 02/16/2024 by Chaim Olea MD at [facility] Left: Knee [employer] [id number] 08/06/2030 [id number] / / [id number] Explanted Type Area Carburetor Specialist Device Identifier Shelf Expiration Date Model / Serial / Lot Isoaid Eye Plaque Kit Implanted:Qty: 1 on 02/10/2022 by Ngozi Kam MD PhD at [facility] Explanted:Qty: 1 on 02/14/2022 at [facility] Other - see comments Left: Eye Other [id number] 03/02/2022 IEPS / 0 / [id number] Description:Car Groomer - [id number] Order number - [id number] Procedures Procedure Name Priority Date/Time Associated Diagnosis Comments OCT, RETINA - OU - BOTH EYES Routine 09/13/2024 12:23 PM FUNERAL HOME ASSOCIATE Cystoid macular edema of left eye SUB-TENON'S INJECTION - OS - LEFT EYE Routine 08/03/2024 10:41 AM FUNERAL HOME ASSOCIATE Cystoid macular edema of left eye OCT, RETINA - OU - BOTH EYES Routine 08/03/2024 9:18 AM FUNERAL HOME ASSOCIATE Cystoid macular edema of left eye from Last 3 Months Results * OCT, Retina - OU - Both Eyes (09/13/2024 12:23 PM FUNERAL HOME ASSOCIATE) Anatomical Region Laterality Modality Head Optical Coherenc e Tomography Narrative 09/13/2024 12:23 PM FUNERAL HOME ASSOCIATE OD - normal foveal contour OS - mildly improved but residual moderate central cystoid macular edema (CME) , subretinal fluid (SRF) overlying lesion us Ngozi Kam MD PhD OPHTH TOMOGRAPHY Fin al Result * Sub-Tenon's Injection - OS - Left Eye (08/03/2024 10:41 AM FUNERAL HOME ASSOCIATE) Anatomical Region Laterality Modality Head Other Narrative 08/03/2024 10:41 AM FUNERAL HOME ASSOCIATE Time Out Informed consent was obtained after all risks, benefits and alternatives were explained to the patient. The patient understood, agreed and wished to proceed. Timeout was completed verifying the patient, procedure, laterality and allergies. Anesthesia Subconjunctival anesthesia was used. Anesthetic medications included Lidocaine 4%, Proparacaine 0.5%. Sub-Tenon's Preparation included 5% betadine to ocular surface, 10% betadine to eyelids. A 30 gauge needle was used. Pharmaceutical Medication: 40 mg triamcinolone 40 mg/mL Route: intraocular, Site: Left Eye [facility]: 7275-7122-65, Lot: [id number], Expiration date: 09/06/2025, Waste: 0 mL Post-op Post injection exam found visual acuity of at least counting fingers. the patient tolerated the procedure. there were no complications during today's treatment. The patient received written and verbal post procedure care education. Post injection medications were not given. The attending physician was present for the entire procedure. Notes Pt consented sub tenon OS 08/03/2024 Inferior Ngozi Kam MD PhD OPHTH CLINIC PROCEDU RES Final Result * OCT, Retina - OU - Both Eyes (08/03/2024 9:18 AM FUNERAL HOME ASSOCIATE) Anatomical Region Laterality Modality Head Optical Coherenc e Tomography Narrative 08/03/2024 9:18 AM FUNERAL HOME ASSOCIATE OD - normal foveal contour OS -increased central cystoid macular edema (CME) , subretinal fluid (SRF) overlying lesion Ngozi Kam MD PhD OPHTH TOMOGRAPHY [place] Result - Final from Last 3 Months Insurance MEDICARE [facility] MEDICARE BLUE CROSS MEDICARE SUPPLEMENT [facility] MEDICARE Advance Directives For more information, please contact: [phone] * Full Code (Latest Code Status on File) Date Activated Date Inactivated Comments 02/16/2024 4:10 PM 02/17/2024 4:15 PM Care Teams Manager City Relationship Specialty Start Date End Date Michael Chapman MD [address] [place] [address] PCP - General Family Medicine 08/27/17
--- OUTSIDE RECORDS SUMMARY | 2024-10-23 15:18 | XMS_ITS ---
Author Organization [facility] [address] Address [address] [place] [address] Care Team Providers Care Sales Activity Manager Name Role Phone Michael Chapman MD Primary Care Provide r Active Problems Problem Noted Date Diagnosed Date [...] 07/21/23. Assessment & Plan (11/13/2022 1:50 PM TECHNICAL ADVISOR): Status post external plaque radiation, noted to [...] removal as scheduled Thursday Tylenol/Advil PRN pain Current Treatment and Therapy Plans Hypertension* Plan Start Date:05/19/2022 Plan Provider:Alphonso Lock MD Linked Problems Choroidal malignant melanoma , left (HCC)Hypertension, unspecified type Treatment Medications No medications scheduled. IV MAINTENANCE THERAPY PLAN* Plan Start Date:05/19/2022 Plan Provider:Alphonso Lock MD Linked Problems Choroidal malignant melanoma , left (HCC) Treatment Medications No medications scheduled. Past Treatment and Therapy Plans No past plan information found. Radiation Treatments * Course C1 02/10/2022 - 02/10/2022 Treatment Period Energy Fraction Dose Fractions Total Dose Plans Planned LT_EYE 02/10/2022 - 02/10/2022 8,500 1 8,500 Reference Points Delivered LT_EYE 02/10/2022 - 02/10/2022 8,500 Lifetime Dose Tracking * Chemical Lifetime Dose Automatic Entry Manual Entr y DLP 5,842 mGycm 5,842 mGycm 0 mGycm
--- OUTSIDE RECORDS SUMMARY | 2024-10-23 15:18 | XMS_ITS | Clinical Summary ---
Author Organization [facility] [address] Address [address] [place] [address] Care Team Providers Care Road Mixer Operator Name Role Phone Michael Chapman MD Primary Care Provide r Allergies No known active allergies Medications atorvastatin [...] 07/21/23. Assessment & Plan (11/13/2022 1:50 PM SAP BUSINESS OBJECTS CONSULTANT): Status post external plaque radiation, noted to [...] removal as scheduled Thursday Tylenol/Advil PRN pain Encounters Date Type Department Care Team Description 09/13/2024 1:00 PM SAP BUSINESS OBJECTS CONSULTANT Office Visit [facility] Ophthalmology [address] [place] [address] [place] [phone] Ngozi Kam MD PhD Cystoid macular edema of left eye (Primary Dx) 08/03/2024 8:30 AM SAP BUSINESS OBJECTS CONSULTANT Office Visit [facility] Ophthalmology [address] [place] [phone] Ngozi Kam MD PhD Cystoid macular edema of left eye (Primary Dx) from Last 3 Months Immunizations Immunization Administration Dates Next Due Influenza, Quadrivalent, Hig h Dose, Preservative Free, Intrr 07/09/2021 Influenza, Quadrivalent, Split, Intramuscular Tdap 02/24/2020,02/21/2020 Surgical History Surgery Date Site/Laterality Comments BACK SURGERY 11/15/2014 anterior lumbar fusion and posterior lumbar fusion EYE SURGERY 02/10/2022 Left iodine plaque REPLACEMENT TOTAL KNEE 02/06/2024 - 03/06/2024 Left Medical History Medical History Date Comments Hypertension Sleep apnea 2007 uses cpap Cancer ([facility] ([facility]) 2021 cancer wi thin left eyeball, patient had radiation Family History Medical History Relation Name Comments Arthritis Brother Cancer Father Cataracts Father Arthritis Mother Cancer Mother Diabetes Mother Glaucoma Mother Heart disease Mother Hypertension Mother Stroke Mother Macular degeneration Mother's Brother Amblyopia Neg Hx Blindness Neg Hx Fuchs' dystrophy Neg Hx Retinal detachment Neg Hx Strabismus Neg Hx Thyroid disease Neg Hx Relation Name Status Comments Brother Father Mother Mother's Brother Social History Tobacco Use Types Packs/Day Years [...] on file Legal Sex Male 6:57 PM SAP BUSINESS OBJECTS CONSULTANT Gender Identity Not on file Sexual Orientation Not on file Obstetrics History Last Filed Vital Signs Vital Sign Reading [...] 04/11/2024 8:44 AM CDT Plan of Treatment Health Maintenance Due Date Last Done Comments Colon Cancer Screening-Colonoscopy 1950 Depression Screening 1950 Hepatitis C Screening 1950 Hepatitis B Screening 02/07/1970 Zoster Vaccine (1 of 2) 02/07/2002 Pneumococcal vaccine 65+ (1 of 1 - PCV) 02/07/2017 Well Visit 65+ 02/07/2017 Covid-19 Vaccine (5 - 2023-2 5 season) 2024 01/17/2022, 07/09/2021, 11/27/2020, Additional history exists Influenza Vaccine (#1) 2024 3, 07/09/2021, 07/13/2020 Fall Risk Assessment 02/15/2025 02/16/2024, 01/25/20 22 DTaP/Tdap/Td Vaccine (3 - Td or Tdap) 02/23/2030 02/24/2020, 02/21/2020 Medical Devices Implanted Type Area Advertising Agency Manager Device Identifier Shelf Expiration Date Model / Serial / Lot Depuy Orthopa[employer] Attune Cruciate Retain Cementless Knee Left 7 Component Femoral [id number] - [id number] Implanted:Qty: 1 on 02/16/2024 by Chaim Olea MD at [facility] Left: Knee [employer] 10/07/2031 [id number] / / [id number] Dep[employer] Attune Fb Tib Base Sz 7 Por [id number] - [id number] Implanted:Qty: 1 on 02/16/2024 by Chaim Olea MD at [facility] Left: Knee [employer] 11/04/2033 [id number] / / [id number] Depuy [employer] Insert Attune Left Medial Stabilized Size 7 5mm [id number] - [id number] Implanted:Qty: 1 on 02/16/2024 by Chaim Olea MD at [facility] Left: Knee [employer] [id number] 08/06/2030 [id number] / / [id number] Explanted Type Area Advertising Agency Manager Device Identifier Shelf Expiration Date Model / Serial / Lot Isoaid Eye Plaque Kit Implanted:Qty: 1 on 02/10/2022 by Ngozi Kam MD PhD at [facility] Explanted:Qty: 1 on 02/14/2022 at [facility] Other - see comments Left: Eye Other [id number] 03/02/2022 IEPS / 0 / [id number] Description:Blackener - [id number] Order number - [id number] Procedures Procedure Name Priority Date/Time Associated Diagnosis Comments OCT, RETINA - OU - BOTH EYES Routine 09/13/2024 12:23 PM SAP BUSINESS OBJECTS CONSULTANT Cystoid macular edema of left eye SUB-TENON'S INJECTION - OS - LEFT EYE Routine 08/03/2024 10:41 AM SAP BUSINESS OBJECTS CONSULTANT Cystoid macular edema of left eye OCT, RETINA - OU - BOTH EYES Routine 08/03/2024 9:18 AM SAP BUSINESS OBJECTS CONSULTANT Cystoid macular edema of left eye from Last 3 Months Results * OCT, Retina - OU - Both Eyes (09/13/2024 12:23 PM SAP BUSINESS OBJECTS CONSULTANT) Anatomical Region Laterality Modality Head Optical Coherenc e Tomography Narrative 09/13/2024 12:23 PM SAP BUSINESS OBJECTS CONSULTANT OD - normal foveal contour OS - mildly improved but residual moderate central cystoid macular edema (CME) , subretinal fluid (SRF) overlying lesion Ngozi Kam MD PhD OPHTH TOMOGRAPHY Fin al Result * Sub-Tenon's Injection - OS - Left Eye (08/03/2024 10:41 AM SAP BUSINESS OBJECTS CONSULTANT) Anatomical Region Laterality Modality Head Other Narrative 08/03/2024 10:41 AM SAP BUSINESS OBJECTS CONSULTANT Time Out Informed consent was obtained after [...] 40 mg/mL Route: intraocular, Site: Left Eye ND: [id number], Lot: [id number], Expiration date: 09/06/2025, Waste: 0 mL Post-op [...] OU - Both Eyes (08/03/2024 9:18 AM SAP BUSINESS OBJECTS CONSULTANT) Anatomical Region Laterality Modality Head Optical Coherenc e Tomography Narrative 08/03/2024 9:18 AM SAP BUSINESS OBJECTS CONSULTANT OD - normal foveal contour OS -increased central cystoid macular edema (CME) , subretinal fluid (SRF) overlying lesion Ngozi Kam MD PhD OPHTH TOMOGRAPHY [place] Result - Final from Last 3 Months Insurance MEDICARE [facility] Address: [address] [place] [address] MEDICARE BLUE CROSS MEDICARE SUPPLEMENT [facility] MEDICARE Advance Directives For more information, please contact: [phone] * Full Code (Latest Code Status on File) Date Activated Date Inactivated Comments 02/16/2024 4:10 PM 02/17/2024 4:[address] Mixer Operator Relationship Specialty Start Date End Date Michael Chapman MD [address] [place] [address] PCP - General Family Medicine 08/27/17
--- OUTSIDE RECORDS SUMMARY | 2024-10-23 15:19 | XMS_ITS | Data Portability ---
Author Organization [facility] Address [address] [place] [address] Assessment No assessment recorded. Plan of Treatment Reminders Order Date Submit Date Provider Last Modified By Organization Details Last Modified Time Details Appointments None recorde d. Lab HbA1c (hemogl obin A1c), blood 024 12/22/19 [email or web address] In-Office Order, Internal Use Only DO Not Attach Compendium DO Not Attach Compendium, Do Not Delete/merge, [id number] 22:19:37 Referral None recorde d. Procedures None recorde d. Surgeries None recorde d. Imaging None recorde d. Medication Orders None recorde d. Patient TargetsNo targets recorded. Patient Instructions Encounter Date Encounter Id Patient Instructions Last Modified By Organization Details Last Modified Time 12/22/2023 [id number] A healthy lifestyle: care instructions [email or web address] Not available 12/22/2023 22:19:36 Reason for Referral None Reported. Results Created Date Observation Date Name Description Value Unit Range Abnormal Flag Note LastModifiedBy Organization Detail LastModifiedTime 12/22/19 24 12/22/2023 HbA1c (hemo globi n A1c), blood HbA1c 6.2 Not Available In-Office Order Internal Use Only DO Not Attach Compendium DO Not Attach Compendium, Do Not Delete/merge, [id number] 12/22/2023 16:59:45 Result Notes None recorded. Problems Name Problem SNOMED Code Status Onset Date Resolution Date Notes Provider Name and Address Organization Details Recorded Time Obesity 026502591 Active 2023 Dawn Vital MD Attn: Rosie mckeon,[address] [facility], [place], [address], [facility] 4 22:21:57 Prediabetes 677077050 Active 2023 Dawn Vital MD Attn: Rosie mckeon,[address] [facility], [place], [address], [facility] - [facility] 4 22:21:56 Essential hypertension 02679476 Active 2023 Dawn Vital MD Attn: Rosie mckeon,[address] [facility], [place], [address], [facility] - [facility] 4 22:21:59 Problem Notes None recorded. Procedures Surgical History Date Name Laterality Status Provider Name and Address Organization Details Recorded Time Back Surgery completed [facility] 12/22/2023 16:37:09 primary posterior interbody fusion of joint of lumbar spine completed [facility] 12/22/2023 16:37:23 Imaging Results None recorded. Procedure Notes None recorded. Medical Equipment None Reported. Medications Name Sig Start Date Stop Date Status Note LastModified by Organization Details LastModified Time atorvastatin 10 mg tablet active Not Available Not Available No t Available lorazepam 0.5 mg tablet active Not Available Not Available No t Available oseltamivir 75 mg capsule TAKE 1 CAPSULE BY MOUTH EVERY 12 HOURS FOR 5 DAYS\ active Not Available Not Available No t Available prednisone 50 mg tablet TAKE 1 TABLET BY MOUTH EVERY DAY active Not Available Not Available No t Available metoprolol succinate ER 25 mg tablet,extended release 24 hr active Not Available Not Availabl e Not Available methylprednisol one 4 mg tablets in a dose pack active Not Available Not Available No t Available losartan 50 mg-hydrochlorot hiazide 12.5 mg tablet active Not Available Not Available Not Available ketoconazole 2 % topical cream active Not Available Not Availa ble Not Available aspirin 81 mg capsule Take 1 capsule every day by oral route. active Not Available Not Available No t Available Vitals Date Recorded Body height Body mass index (BMI) Body weight Body temperature Respiratory rate Oxygen saturation Oxygen saturation in Arterial blood by Pulse oximetry Heart rate Systolic blood pressure Diastolic blood pressure Provider Name and Address Organization Details Last Updated DateTime 4 177.8 cm 32.3 kg/m2 156947. 73 g 98.6 [degF] 18 /min 97 % 97 % 71 /min 153 mm[Hg] 97 mm[Hg] Ranjan sarmiento RMA [place] - [facility] 16:42:21 Social History Question Answer Notes LastModified by Organizat ion Details LastModified Time Tobacco Smoking Status Never Smoker Maliha LEGERA null, [place] - [facility] 12/22/2023 16:36:06 Do You Have An Advance Directive? Yes Information not available 12/22/2023 What Is Your Level Of Alcohol Consumption? Occasional Information not available 12/22/2023 How Many Years Have You Consumed Alcohol? 21 Information not available 12/22/2023 In The 14 Days Before Symptom Onset, Have You Had Close Contact With A Laboratory-confir med COVID-19 While That Case Was Ill? No Information not available 12/22/2023 In The 14 Days Before Symptom Onset, Have You Had Close Contact With A Person Who Is Under Investigation For COVID-19 While That Person Was Ill? No Information not available 12/22/2023 Have You Been To An Area Known To Be High Risk For COVID-19? No Information not available 12/22/2023 Are You Currently Employed? No Retired Information not available 12/22/2023 What Was The Date Of Your Most Recent Tobacco Screening? 12/22/2023 Information not available 12/22/2023 What Is Your Relationship Status? Information not available 12/22/2023 Are You Sexually Active? Yes Information not available 12/22/2023 Do You Have Smoke And Carbon Monoxide Detectors In Your Home? Yes Information not available 12/22/2023 Are You Passively Exposed To Smoke? Yes Information no t available 12/22/2023 Do You Use Any Illicit Or Recreational Drugs? No Information not available 12/22/2023 Has Tobacco Cessation Counseling Been Provided? No Information not available 12/22/2023 Do You Or Have You Ever Used Any Other Forms Of Tobacco Or Nicotine? No Information not available 12/22/2023 Sex: Male Functional Status None recorded. Mental Status None recorded. Family History Nothing Reported Notes:colon cancer mom and d ad mom had heart issues mom had HTN Medical History No medical history recorded. Immunizations Vaccine Type Date Status Note Provider Monroe archer and Address Organization Details Recorded Time SARS-COV-2 (COVID-19) vaccine, UNSPECIFIED 3 completed Lamontaisa Zumbrota RMA [place], [place] [facility] 12/22/2023 16:38:50 influenza, unspecified formulation 3 completed Lamontaisa Celso RMA [place], [place] [facility] 12/22/2023 16:39:13 Past Encounters Encounter ID Performer Location Encounter Start Date Encounter Closed Date Diagnosis/Indication Diagnosis SNOMED-CT Code Diagnosis ICD10 Code Diagnosis Note [id number] MD Fili Coley 14 IM 4 [facility] [address] [place] [address] 12/22/2023 16:25:35 12/28/2023 15:16:04 Essential hypertension 33931583 I10 BP elevated to 153/97. Home readings mostly in 120s/80s. Patient has been compliant with medication . Also completed recent course of steroids. Elevated BP may be secondary to steroids, back pain, setting in medical office, or subtherape utic control of essential HTN. Ideally would need more data of normal home readings to provide reassuranc e. Additional ly, patient is undecided on staying in this practice or returning to previous. Plan to follow-up in 2-3 weeks after back pain has been addressed and steroids have cleared system. - counselled pt on continuing current medication regimen- continue home BP measuremen ts daily at different times of day- follow-up with previous PCP or here in 2-3 weeks for further management Prediabetes 314135820 R7 3.03 POC A1c 6.2, in range for prediabete s. Given his age, tight glycemic control is less advantageo us in the long run. Plan to continue to eat balanced diet and maintain physical activity. - pt counselled on lifestyle modificati ons, endorses high motivation - pt provided prediabete s folder with resources- deferred referral to nutritioni st at this time; pt will utilize resources already available Obesity 057668472 E66.9 BMI 32.3. Ideally would be below 30 prior to total knee arthroplas ty. Pt endorses high motivation . - see prediabet es Health Concerns Section Related Observation LastModified by Organization Detai ls LastModified Time None Recorded Concern Status LastModified by Organization Details LastModified Time None Recorded Advance Directives Directive Y: Payers Encounter Date Sequence Insurance Name Policy Number Policy Hernandez Covered Member ID Hernandez Member ID Guarantor Name 12/22/2023 1 [place] Kirby Nieto Robles [id number] Kirby Nieto Robles 12/22/2023 2 [place] [id number] Kirby Nieto Robles [id number] Kirby A Robles Notes Date Note Type Note Provider Name and Address Organization Details Recorded Time 12/22/2023 text/html Kirby is a 73 y ear old with a history of choroidal malignant melanoma in remission, HTN, HLD, osteoarthritis, and Meniere's disease presenting for management of HTN. He was previously seen and orthopedic surgery clinic and is following-up to optimize BMI, HTN, and A1c prior to surgery. Also reports he was recently treated for lower back pain and just finished oral steroid taper 2 days ago. Also getting physical therapy for his back. He is undecided whether he wants to continue receiving care here or return to his previous doctor. He was seen 1 month ago. He reports he is here mainly at the urging of his , who believes his BP control is not tight enough. He reports measuring BP at home with new upper arm cuff, shows last few readings on stanislav. Has been 120s over 80s. Endorses BP is often high at doctor's offices. Is compliant with current medication. Preventive [facility] screening - patient's parents both had colon cancer. 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 Plan to follow-up with [facility] for further cancer screening. STI screening if change in sexual habits - same partner 47 years YAJAIRA 7, PHQ 2 - 0 LDCT chest yearly if 20 pack-year smoking hx and currently smoke or have quit within past 15 years - 10 pack year smoking history, quit 45 years ago Hgb A1c q3y if overweight/obese - POC 6.2 ASCVD risk calculation - already completed by previous doctor Prostate cancer screening: discuss risk and benefits; should have an individualized approach (until age 69) - reports father had bypass procedure for enlarged prostate. Further cancer screening per [facility] as above. Karen Lara MD Attn: Accounting[address] [facility], [place], [address], [place] - [facility] 12/27/2023 23:07:27
--- OUTSIDE RECORDS SUMMARY | 2024-10-23 15:19 | XMS_ITS | Clinical Summary ---
Author Organization [facility] Address [address] [place] [address] Care Team Providers Care Home Appliance Installer Name Role Phone Unavailable Primary Care Provider Unavailabl e Social History Tobacco Use Types Packs/Day Years Used Date Smoking Tobacco: Former Sex and Gender Information Value Date Recorded Sex Assigned at Not on file Legal Sex Male 11:01 PM CDT Gender Identity Not on file Sexual Orientation Not on file Last Filed Vital Signs Vital Sign Reading Time Taken Comments Blood Pressure 156/86 11/27/2011 3:47 PM CDT Pulse 80 11/27/2011 3:47 PM CDT Temperature - - Respiratory Rate 16 11/27/2011 3:47 PM CDT Oxygen Saturation - - Inhaled Oxygen Concentration - - Weight 97.5 kg (215 lb) 11/27/2011 3:47 PM CDT Height 177.8 cm (5' 10 ) 11/27/2011 3:47 PM CDT Body Mass Index 30.85 11/27/2011 3:47 PM CDT Plan of Treatment Health Maintenance Due Date Last Done Comments Colorectal Cancer Screening Colonoscopy (10 Years) 1950 Hepatitis C 02/07/1970 DTaP, Tdap and Td Vaccines ( 1 - Tdap) 02/07/1971 Zoster Vaccines (1 of 2) 02/07/2002 Pneumococcal Vaccine: 65+ Ye ars (1 of 1 - PCV) 02/07/2017 COVID-19 Vaccine ( - 2023-2 5 season) 2024 Influenza Adult (#1) 2024 RSV Immunization or 60+ Years (1 - 1-dose 75+ series) 02/07/2027 Meningococcal B Vaccine Aged Out No l onger eligible based on patient's age to complete this topic Meningococcal Vaccine Aged Out No ernestine byron eligible based on patient's age to complete this topic RSV Immunizations Under 20 Months Aged Out No longer eligible based on patient's age to complete this topic
--- OUTSIDE RECORDS SUMMARY | 2024-10-23 15:19 | XMS_ITS ---
Author Organization [facility] Address Unknown Encounters Encounter Performer Performer Role Encounter Diagnoses Location Date Discharge - Discharged to home or self care - Private home/apt. with no home health services [facility] 11/15/2014 02:45 pm EDT - 11/18/2014 10:40 am EDT Social History
[2024-10-23 15:27] VITALS: BP 148/73; PULSE 69; RESP 16; TEMP 37.2; O2SAT 98
--- NOTE | 2024-10-23 17:07 | ED_ITS ---
HPI - General Adult General Chief complaint: Upper Respiratory Infection Stated complaint: Congestion/Body Aches Source: patient Mode of arrival: ambulatory Limitations: no limitations History of Present Illness HPI narrative: Patient presents for evaluation of sick symptoms for the last 3 days. His initial symptom was sore throat. He then developed sinus congestion, postnasal drainage, cough, generalized body aches, hot flashes and chills. No nausea, vomiting, diarrhea. No recent sick contacts to his knowledge. He is taking sudafed for his symptoms. He does not smoke. Related Data Home Medications ?Medication ?Instructions ?Recorded ?Confirmed ?Last Taken ?Type atorvastatin 20 mg tablet 10 mg PO DAILY 02/21/20 10/23/24 Unknown History losartan 50 mg-hydrochlorothiazide 1 tablet PO DAILY 02/21/20 10/23/24 Unknown History 12.5 mg tablet metoprolol succinate 25 mg 25 mg PO DAILY 02/21/20 10/23/24 Unknown History tablet,extended release 24 hr aspirin 81 mg tablet mg PO 03/07/24 Unknown History Allergies Allergy/AdvReac Type Severity Reaction Status Date / Time No Known Allergies Allergy Verified 10/23/24 15:19 Review of Systems Review of Systems: CONSTITUTIONAL: Reports hot flashes and chills EYES: Denies visual changes, redness, or discharge. ENT: Reports sore throat, sinus congestion, postnasal drainage CARDIOVASCULAR: Denies chest pain, palpitations, or edema. RESPIRATORY: Reports cough. Denies shortness of breath. GASTROINTESTINAL: Denies abdominal pain, nausea, vomiting, or diarrhea. GENITOURINARY: Denies dysuria or hematuria. SKIN: Denies rash or itching. MUSCULOSKELETAL: Reports generalized body aches NEUROLOGIC: Denies headache, numbness, dizziness, or weakness. PSYCHIATRIC: Denies anxiety or depression. 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 Gender identity (if verbalized by the patient): Male Sexual Orientation (if Verbalized by the Patient): Straight or Heterosexual Spiritual care concerns: No Exam Narrative: GENERAL: Well-appearing, well-nourished, and in no acute distress. HEAD: Normocephalic, atraumatic. EYES: PERRLA and EOMI. ENT: Nares clear, no rhinorrhea or epistaxis. Mucous membranes moist. Orophar ynx without tonsillar hypertrophy exudate or other lesions. Bilateral TMs pearly pa nonbulging NECK: Supple. No adenopathy or masses. No carotid bruits or JVD CHEST: Clear to auscultation. No respiratory distress. No wheezes rales or rhonchi HEART: Regular rate and rhythm. No murmur heard. Normal peripheral pulses. ABDOMEN: Soft, nontender, nondistended, normal active bowel sounds. EXTREMITIES: Normal range of motion. No edema. SKIN: Warm, dry, no rash. NEURO: No focal deficits. Alert and oriented x3. PSYCH: Normal mood and affect. Course Course Emergency Course: This is a 74-year-old male who presented for evaluation of sick symptoms. Influenza negative. COVID positive. We discussed treatment options. Patient would like to be treated with Paxlovid. I advised that there are many drug to drug interactions and some patients who take Paxlovi developed rebound symptoms. He verbalized understanding. He would like to proceed with therapy. Increase hydration. Luua-hsj-rukaqba agents for symptom management. Follow up with primary provider. Go to the ER for worsening symptoms. Patient in agreement with plan of care. Level of Care: Express Care Visit Vital Signs Vital signs: Vital Signs Temperature 37.2 C 10/23/24 15:27 Pulse Rate 69 10/23/24 15:27 Respiratory Rate 16 10/23/24 15:27 Blood Pressure 148/73 H 10/23/24 15:27 Pulse Oximetry 98 10/23/24 15:27 Oxygen Delivery Room Air 10/23/24 15:27 Temperature 37.2 C 10/23/24 15:27 Pulse Rate 69 10/23/24 15:27 Respiratory Rate 16 10/23/24 15:27 Blood Pressure 148/73 H 10/23/24 15:27 Pulse Oximetry 98 10/23/24 15:27 Oxygen Delivery Room Air 10/23/24 15:27 Medical Decision Making Vital Signs Vital Signs: Vital Signs Temperature 37.2 C 10/23/24 15:27 Pulse Rate 69 10/23/24 15:27 Respiratory Rate 16 10/23/24 15:27 Blood Pressure 148/73 H 10/23/24 15:27 Pulse Oximetry 98 10/23/24 15:27 Oxygen Delivery Room Air 10/23/24 15:27 Temperature 37.2 C 10/23/24 15:27 Pulse Rate 69 10/23/24 15:27 Respiratory Rate 16 10/23/24 15:27 Blood Pressure 148/73 H 10/23/24 15:27 Pulse Oximetry 98 10/23/24 15:27 Oxygen Delivery Room Air 10/23/24 15:27 Discharge Plan Discharge Clinical Impression: COVID Patient Disposition: Home, Self-Care Condition: Stable Instructions: Antibiotic Form, COVID-19 (Coronavirus Disease 2019) (ED) Additional Instructions: THE FOLLOWING MEDICATIONS MAY HELP YOUR SYMPTOMS: COUGH AND NASAL DRAINAGE: MUCINEX DM OR DELSYM(DEXTROMETHORPHAN) BODY ACHES: IBUPROFEN SORE THROAT: CEPACOL LOZENGES Patient Language: Peruvian Prescriptions: New Paxlovid 300 mg (150 mg x 2)-100 mg tablets,dose pack See Rx Instructions .ROUTE .COMPLEX Qty: 30 0RF Rx Instructions: take TWO 150 mg tablets of nirmatrelvir with ONE 100 mg tablet of ritonavir twice daily for 5 days No Action atorvastatin 20 mg tablet 10 mg PO DAILY metoprolol succinate 25 mg tablet extended release 24 hr 25 mg PO DAILY losartan-hydrochlorothiazide 50-12.5 mg tablet 1 tablet PO DAILY Adult Low Dose Aspirin 81 mg Tablet PO Follow-up/Referrals: Michael Chapman MD [Primary Care Provider] - Time of Disposition: 17:05
--- NOTE | 2024-10-23 17:20 | ED.GENADULT ---
HPI - General Adult General Chief complaint: Upper Respiratory Infection Stated complaint: Congestion/Body Aches Source: patient Mode of arrival: ambulatory Limitations: no limitations History of Present Illness HPI narrative: PATIENT Related Data Home Medications ?Medication ?Instructions ?Recorded ?Confirmed ?Last Taken ?Type atorvastatin 20 mg tablet 10 mg PO DAILY 02/21/20 10/23/24 Unknown History losartan 50 mg-hydrochlorothiazide 1 tablet PO DAILY 02/21/20 10/23/24 Unknown History 12.5 mg tablet metoprolol succinate 25 mg 25 mg PO DAILY 02/21/20 10/23/24 Unknown History tablet,extended release 24 hr aspirin 81 mg tablet mg PO 03/07/24 Unknown History Allergies Allergy/AdvReac Type Severity Reaction Status Date / Time No Known Allergies Allergy Verified 10/23/24 15:19 [facility] Past Medical History Medical History Osteoarthritis Spondylolisthesis of lumbar region Hyperlipidemia Hypertension Surgical History Surgical History History of lumbar laminectomy Family History Family History Other Family history of arthritis Family history of malignant neoplasm Family history of mental disorder Hypertension Social History Social History Smoking status: Former smoker Alcohol intake: current Substance use: never Living arrangements: with family 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 Gender identity (if verbalized by the patient): Male Sexual Orientation (if Verbalized by the Patient): Straight or Heterosexual Spiritual care concerns: No Course Vital Signs Vital signs: Vital Signs Temperature 37.2 C 10/23/24 15:27 Pulse Rate 69 10/23/24 15:27 Respiratory Rate 16 10/23/24 15:27 Blood Pressure 148/73 H 10/23/24 15:27 Pulse Oximetry 98 10/23/24 15:27 Oxygen Delivery Room Air 10/23/24 15:27 Temperature 37.2 C 10/23/24 15:27 Pulse Rate 69 10/23/24 15:27 Respiratory Rate 16 10/23/24 15:27 Blood Pressure 148/73 H 10/23/24 15:27 Pulse Oximetry 98 10/23/24 15:27 Oxygen Delivery Room Air 10/23/24 15:27 Medical Decision Making Vital Signs Vital Signs: Vital Signs Temperature 37.2 C 10/23/24 15:27 Pulse Rate 69 10/23/24 15:27 Respiratory Rate 16 10/23/24 15:27 Blood Pressure 148/73 H 10/23/24 15:27 Pulse Oximetry 98 10/23/24 15:27 Oxygen Delivery Room Air 10/23/24 15:27 Temperature 37.2 C 10/23/24 15:27 Pulse Rate 69 10/23/24 15:27 Respiratory Rate 16 10/23/24 15:27 Blood Pressure 148/73 H 10/23/24 15:27 Pulse Oximetry 98 10/23/24 15:27 Oxygen Delivery Room Air 10/23/24 15:27 Discharge Plan Discharge Clinical Impression: COVID Patient Disposition: Home, Self-Care Condition: Stable Instructions: Antibiotic Form, COVID-19 (Coronavirus Disease 2019) (ED) Additional Instructions: THE FOLLOWING MEDICATIONS MAY HELP YOUR SYMPTOMS: COUGH AND NASAL DRAINAGE: MUCINEX DM OR DELSYM(DEXTROMETHORPHAN) BODY ACHES: IBUPROFEN SORE THROAT: CEPACOL LOZENGES Patient Language: French Prescriptions: New Paxlovid 300 mg (150 mg x 2)-100 mg tablets,dose pack See Rx Instructions .ROUTE .COMPLEX Qty: 30 0RF Rx Instructions: take TWO 150 mg tablets of nirmatrelvir with ONE 100 mg tablet of ritonavir twice daily for 5 days No Action atorvastatin 20 mg tablet 10 mg PO DAILY metoprolol succinate 25 mg tablet extended release 24 hr 25 mg PO DAILY losartan-hydrochlorothiazide 50-12.5 mg tablet 1 tablet PO DAILY Adult Low Dose Aspirin 81 mg Tablet PO Follow-up/Referrals: Michael Chapman MD [Primary Care Provider] - Time of Disposition: 17:05
[2024-10-23 17:27] LABS: EDCOVIDSCREEN Positive (Negative); EDINFLUASCREEN Negative (Negative); EDINFLUBSCREEN Negative (Negative)
== END 2024-10-23 17:08 | disposition home or self-care (01) ==
PROVIDERS: Emergency Provider Nurse Practitioner; PCP Family Medicine
DX: U07.1 COVID-19 (principal); Z87.891 Personal history of nicotine dependence; I10 Essential (primary) hypertension; E78.5 Hyperlipidemia, unspecified; M19.90 Unspecified osteoarthritis, unspecified site; M43.16 Spondylolisthesis, lumbar region
CPT/HCPCS: 87426; 87804; 99213; G0463

== ENCOUNTER 2025-03-21 11:31 | Outpatient (CLI) | payer MEDICARE, SELFPAY ==
--- NOTE | ~2025-03-21 | XR_ITS ---
Lumbosacral Spine: AP and lateral views Clinical History: Pain COMPARISON: 10/11/2018 Findings: Posterior and interbody fusion from L5 to S1 present. There is moderate degenerative change of the lumbar spine. There is mild to moderate facet arthropathy. No acute fracture. Stable anteroli sthesis of L5 over S1. The sacroiliac joints are normally outlined. Impression: Moderate degenerative spondylosis. Postoperative change at the L5-S1 level. Reviewed, dictated and finalized at location . Impression: Moderate degenerative spondylosis. Postoperative change at the L5-S1 level.
--- OUTSIDE RECORDS SUMMARY | 2025-03-21 11:43 | XMS_ITS ---
Author Organization [facility] Care Team Providers Care Dental Technician Instructor Name Role Phone Wild eLal Unavailable Unavailable Care Team Name Role Address Phone Organization Dates [facility] [address], [place], [place], [id number], [place] (Office): [phone] [facility] 11/15/2014 - 11/18/2014 Reason for Referral No Reasons for Referral Entered Social History Social History Observation Description Start Date End Date Code Code System Current Smoking Status Tobacco smoking consumption unknown 902300530 SNOMED CT Sex Assigned At Male 1950 [address]0 [facility] Gender Identity
--- OUTSIDE RECORDS SUMMARY | 2025-03-21 11:43 | XMS_ITS ---
Author Organization [facility] [place] [address] Address [address] [place] [address] Care Team Providers Care Bond Writer Name Role Phone Michael Chapman MD Primary [...] 07/21/23. Assessment & Plan (11/13/2022 1:50 PM MANAGER CONTINUOUS IMPROVEMENT): Status post external plaque radiation, noted to [...]
--- OUTSIDE RECORDS SUMMARY | 2025-03-21 11:43 | XMS_ITS | Referral Summary ---
Author Organization [facility] [place] [address] [place] [address] Care Team Providers Care Director It Name Role Phone Michael hCapman MD Primary Care Provide r Allergies No [...] 07/21/23. 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): Status post external plaque radiation, noted to [...] on file Legal Sex Male 6:57 PM MS SQL DEVELOPER Gender Identity Not on file Sexual Orientation [...] A M CDT Height 177.8 cm (5' 10) 04/11/2024 8:44 AM CDT Body Mass Index 31.51 04/11/2024 8:44 AM CDT Plan of Treatment Not on file Medical Devices Implanted Type Area German Tutor Device Identifier Shelf Expiration Date Model / Serial / Lot Depuy [employer] Attune Cruciate Retain Cementless Knee Left 7 Component Femoral [id number] - [id number] Implanted:Qty: 1 on 02/16/2024 by Chaim Olea MD at [facility] Left: Knee [employer]uy [employer] 10/07/2031 [id number] / / [id number] Dep[employer] Attune Fb Tib Base Sz 7 Por [id number] - [id number] Implanted:Qty: 1 on 02/16/2024 by Chaim Olea MD at [facility] Left: Knee [employer]uy [employer] 11/04/2033 [id number] / / [id number] Dep[employer] Insert Attune Left Medial Stabilized Size 7 5mm [id number] - [id number] Implanted:Qty: 1 on 02/16/2024 by Chaim Olea MD at [facility] Left: Knee [employer] [id number] 08/06/2030 [id number] / / [id number] Explanted Type Area German Tutor Device Identifier Shelf Expiration Date Model / Serial / Lot Isoaid Eye Plaque Kit Implanted:Qty: 1 on 02/10/2022 by Ngozi Kam MD PhD at [facility] Explanted:Qty: 1 on 02/14/2022 at [facility] Other - see comments Left: Eye Other [id number] 03/02/2022 IEPS / 0 / [id number] Description:Dish Technician - [id number] Order number - [id number] Insurance MEDICARE [facility] MEDICARE BLUE CROSS MEDICARE SUPPLEMENT [facility] MEDICARE Advance Directives For more information, please contact: [phone] * Full Code (Latest Code Status on File) Date Activated Date Inactivated Comments 02/16/2024 4:10 PM 02/17/2024 4:15 PM Care Teams Director It Relationship Specialty Start Date End Date Michael Chapman MD [address] [place] [address] PCP - General Family Medicine 08/27/17
--- OUTSIDE RECORDS SUMMARY | 2025-03-21 11:43 | XMS_ITS | Clinical Summary ---
Author Organization [facility] Address [facility] [place] [address] Care Team Providers Care City Jailer Name Role Phone Unavailable Primary Care Provider [...] 3:47 PM CDT Height 177.8 cm (5' 10) 11/27/2011 3:47 PM CDT Body Mass Index 30.85 11/27/2011 3:47 PM CDT Plan of Treatment Health Maintenance Due Date Last Done Comments Colorectal Cancer Screening Colonoscopy (10 Years) 1950 Hepatitis C 02/07/1970 DTaP, Tdap and Td Vaccines ( 1 - Tdap) 02/07/1971 Pneumococcal Vaccine: 50+ Ye ars (1 of 1 - PCV) 02/07/2002 Zoster Vaccines (1 of 2) 02/07/2002 COVID-19 Vaccine ( - 2023-2 5 season) 2024 RSV Immunization or 60+ Years (1 [...]
--- OUTSIDE RECORDS SUMMARY | 2025-03-21 11:43 | XMS_ITS | Clinical Summary ---
Author Organization [facility] [place] [address] [place] [address] Care Team Providers Care Ups Driver Name Role Phone Michael Chapman MD Primary [...] 07/21/23. 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, patient had radiation Family History Medical [...] on file Legal Sex Male 6:57 PM JAVA SPRING DEVELOPER Gender Identity Not on file Sexual [...] C Screening 1950 Hepatitis B Screening 02/07/1970 Pneumococcal vaccine 65+ (1 of 1 - PCV) 02/07/2002 Zoster Vaccine (1 of 2) 02/07/2002 Well Visit 65+ 02/07/2017 Covid-19 Vaccine (5 - 2023-2 5 season) 2024 01/17/2022, 07/09/2021, 11/27/2020, Additional history exists Fall Risk Assessment 02/15/2025 02/16/2024, 01/25/20 22 Influenza Vaccine (#1) 2025 3, 07/09/2021, 07/13/2020 DTaP/Tdap/Td Vaccine (3 - Td or Tdap) 02/23/2030 02/24/2020, 02/21/2020 Medical Devices Implanted Type Area University Extension Specialist Device Identifier Shelf Expiration Date Model / Serial / Lot Depuy Orthopa[employer] Attune Cruciate Retain Cementless Knee Left 7 Component Femoral [id number] - [id number] Implanted:Qty: 1 on 02/16/2024 by Chaim Olea MD at [facility] Left: Knee [employer]uy [employer] 10/07/2031 [id number] / / [id number] Dep[employer] Attune Fb Tib Base Sz 7 Por [id number] - [id number] Implanted:Qty: 1 on 02/16/2024 by Chaim Olea MD at [facility] Left: Knee [employer]uy [employer] 11/04/2033 [id number] / / [id number] Dep[employer] Insert Attune Left Medial Stabilized Size 7 5mm [id number] - [id number] Implanted:Qty: 1 on 02/16/2024 by Chaim Olea MD at [facility] Left: Knee [employer]uy [employer] [id number] 08/06/2030 [id number] / / [id number] Explanted Type Area University Extension Specialist Device Identifier Shelf Expiration Date Model / Serial / Lot Isoaid Eye Plaque Kit Implanted:Qty: 1 on 02/10/2022 by Ngozi Kam MD PhD at [facility] Explanted:Qty: 1 on 02/14/2022 at [facility] Other - see comments Left: Eye Other [id number] 03/02/2022 IEPS / 0 / [id number] Description:Lithograph Designer - [id number] Order number - [id number] Insurance MEDICARE [facility] MEDICARE BLUE CROSS MEDICARE SUPPLEMENT [facility] MEDICARE Advance Directives For more information, please contact: [phone] * Full Code (Latest Code Status on File) Date Activated Date Inactivated Comments 02/16/2024 4:10 PM 02/17/2024 4:15 PM Care Teams Ups Driver Relationship Specialty Start Date End Date Michael Chapman MD [address] [place] [id number] PCP - General Family Medicine 08/27/17
--- OUTSIDE RECORDS SUMMARY | 2025-03-21 11:44 | XMS_ITS | Data Portability ---
[facility] Address [address] [place] [address] Assessment No assessment recorded. Plan of Treatment Reminders Order Date Submit Date Provider Last Modified By Organization Details Last Modified Time Details Appointments None recorde d. Lab HbA1c (hemogl obin A1c), blood 024 12/22/19 In-Office Order, Internal Use Only DO Not Attach Compendium DO Not Attach Compendium, Do Not Delete/merge, [id number] 22:19:37 Referral None recorde d. Procedures None recorde d. Surgeries None recorde d. Imaging None recorde d. Medication Orders None recorde d. Patient TargetsNo targets recorded. Patient Instructions Encounter Date Encounter Id Patient Instructions Last Modified By Organization Details Last Modified Time 12/22/2023 [id number] A healthy lifestyle: care instructions Not available 12/22/2023 22:19:36 Reason for Referral None Reported. Results Created Date Observation Date Name Description Value Unit Range Abnormal Flag Note LastModifiedBy Organization Detail LastModifiedTime 12/22/19 24 12/22/2023 HbA1c (hemo globi n A1c), blood HbA1c 6.2 Not Available In-Office Order Internal Use Only DO Not Attach Compendium DO Not Attach Compendium, Do Not Delete/merge, [id number] 12/22/2023 16:59:45 Result Notes None recorded. Problems Name Problem SNOMED Code Status Onset Date Resolution Date Notes Provider Name and Address Organization Details Recorded Time Obesity 001322357 Active 2023 Dawn Vital MD Attn: Rosie mckeon,[address] [facility], [place], [address], [facility] 4 22:21:57 Prediabetes 360050976 Active 2023 Dawn Vital MD Attn: Rosie mckeon,[address], [place], [address], [facility] 4 22:21:56 Essential hypertension 20022047 Active 2023 Dawn Vital MD Attn: Rosie mckeon,[address], [place], [address], [facility] 4 22:21:59 Problem Notes None recorded. Procedures Surgical History Date Name Laterality Status Provider Name and Address Organization Details Recorded Time Back Surgery completed [facility] 12/22/2023 16:37:09 primary posterior interbody fusion of joint of lumbar spine completed [facility] 12/22/2023 16:37:23 Imaging Results None [...] blood by Pulse oximetry Heart rate Systolic And Diastolic Provider Name and Address Organization Details Last Updated DateTime 177.8 cm 32.3 kg/m2 169021. 73 g 98.6 [degF] 18 /min 97 % 97 % 71 /min 153/97 mm[Hg] Ranjan sarmiento RMA [place] [facility] 16:42:21 Social History Question Answer Notes LastModified by Organizat ion Details LastModified Time Tobacco Smoking Status Never Smoker Maliha LEGERA null, [place] - [facility] 12/22/2023 16:36:06 Do You Have An Advance Directive? Yes Information n ot available 12/22/2023 How Many Years Have You Consumed Alcohol? 21 Information not available 12/22/2023 In The 14 Days Before Symptom Onset, Have You Had Close Contact With A Laboratory-confirm ed COVID-19 While That Case Was Ill? No Information n ot available 12/22/2023 In The 14 Days Before Symptom Onset, Have You Had Close Contact With A Person Who Is Under Investigation For COVID-19 While That Person Was Ill? No Information not available 12/22/2023 Have You Been To An Area Known To Be High Risk For COVID-19? No Information not available 12/22/2023 What Was The [...] Smoke? Yes Information no t available 12/22/2023 Has Tobacco Cessation Counseling Been Provided? No Information not available 12/22/2023 Sex: Male Functional Status Question Answer Note LastModified by Organizat ion Details LastModified Time Do you use any illicit or recreational drugs? No Information not available 12/22/2023 Do you or have you ever used any other forms of tobacco or nicotine? No Information not available 12/22/2023 What is your level of alcohol consumption? Occasional Information not available 12/22/2023 Are you currently employed? No retired Information not available 12/22/2023 Mental Status None recorded. Family History Nothing Reported Notes:colon cancer mom and d ad mom had heart issues mom had HTN Medical History No medical history recorded. Immunizations Vaccine Type Date Status Note Provider Monroe archer and Address Organization Details Recorded Time SARS-COV-2 (COVID-19) vaccine, UNSPECIFIED 3 completed Lamontaisa Ocala RMA null, [place] [facility] 12/22/2023 16:38:50 influenza, unspecified formulation 3 completed Lamontaisa Ocala RMA null, [place] [facility] 12/22/2023 16:39:13 Past Encounters Encounter ID Performer Location Encounter Start Date Encounter Closed Date Diagnosis/Indication Diagnosis SNOMED-CT Code Diagnosis ICD10 Code Diagnosis Note [id number] MD Fili Coley 14 IM 4 [facility] [address] [place] [address] 12/22/2023 16:25:35 12/28/2023 15:16:04 Essential hypertension 67625584 I10 BP elevated to 153/97. Home readings [...] in 2-3 weeks for further management Prediabetes 393757155 R7 3.03 POC A1c 6.2, in range [...] pt will utilize resources already available Obesity 298348977 E66.9 BMI 32.3. Ideally would be below 30 prior to total knee arthroplas ty. Pt endorses high motivation . - see prediabet es Health Concerns Section Related Observation LastModified by Organization Detai ls LastModified Time None Recorded Concern Status LastModified by Organization Details LastModified Time None Recorded Advance Directives Directive Y: Payers Insurance Date Sequence Insurance Name Policy Number Policy Hernandez Covered Member ID Hernandez Member ID Guarantor Name 03/14/2025 [place] [facility] Kirby Nieto Camden [id number] Kirby A Camden 03/14/2025 1 [place] Kirby Nieto [place] [id number] Kirby Nieto [place] 03/14/2025 2 [place] [id number] Kirby Nieto Camden [id number] Kirby Nieto Camden Notes Date Note Type Note Provider Name [...] offices. Is compliant with current medication. Preventive CareCR screening - patient's parents both had colon cancer. 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 Plan to follow-up with [facility] for further cancer screening. STI screening if [...] for enlarged prostate. Further cancer screening per [facility] as above. Karen Lara MD Attn: Accounting,[address] [facility], [place], [address], [facility] 12/27/2023 23:07:27
== END 2025-03-21 11:32 | disposition home or self-care (01) ==
PROVIDERS: PCP Family Medicine; Visit Provider Nurse Practitioner Family
DX: M54.50 Low back pain, unspecified (principal); M43.06 Spondylolysis, lumbar region; Z98.890 Other specified postprocedural states
CPT/HCPCS: 72100

== ENCOUNTER 2025-05-23 09:05 | Outpatient (RCR) | payer MEDICARE, SELFPAY ==
--- NOTE | 2025-05-23 10:19 | OPREHPOC ---
Outpatient Therapy Plan of Care This is a Multidisciplinary Plan of Care that may contain components documented by all disciplines (PT, OT, and ST.) PT Problem 1 PT Problem #1 Knowledge Deficit PT Goal 1 Goal / Goal Update The patient will be independent in a home exercise program. Target Visit 2 PT Problem 2 PT Problem #2 Impaired Functional Mobility PT Goal 1 Goal / Goal Update The patient will demonstrate 5% or less self perceived disability per the LEFS questionnaire. The patient will ambulate 1,000 feet during the 6 MWT without left hip pain. Target Visit 8 PT Problem 3 PT Problem #3 Impaired Range of Motion PT Goal 1 Goal / Goal Update The patient will demonstrate at least 25 degrees left hip abduction AROM without pain noted to improve functional mobility. Target Visit 8 PT Problem 4 PT Problem #4 Impaired Strength PT Goal 1 Goal / Goal Update The patient will demonstrate 4/5 or greater bilateral hip abduction strength to improve support for ambulation. Target Visit 8
--- NOTE | 2025-05-23 10:19 | PTOPEVAL1 ---
Assessment and note entered by Amanda Tim, PT Evaluation Information Assessment Status Evaluation Diagnosis L ITB syndrome and trochanteric bursitis ICD-10 Condition Codes (PT) Pain in left hip M25.552 Other ICD-10 Condition Codes ( M76.32, M70.62 PT) Onset 04/26/25 Subjective Information Don reports he started having pain in his left hip around 04/26/25. The pain would radiate down to the knee and he had to use his walker and cane for a few days due to difficulty walking. He notes pain has improved overall but he still has pain on the outside of the left hip when he is walking at random times. He also notes pain when his left leg is hanging without support and he tries to move it to the side. He went to see Dr. Olea on 05/17/25 and was diagnosed with ITB syndrome and greater trochanteric bursitis. He had x-rays and was told his right hip looks worse than the left. He has a history of a left knee replacement in February 2024. He is using ibuprofen most days for hip and back pain. Reported Pain Level Pain Score 0: Self Report Assessment PT Clinical Summary Kirby Hannah presents with left hip pain and has been diagnosed with ITB syndrome and greater trochanteric bursitis. He has difficulty with walking when first standing. He objectively demonstrates weakness in the left > right hip abductors and extensors; decreased flexibility in the left > right hip abductors, piriformis, hamstrings, and quadriceps; and decreased left hip abduction and external rotation AROM. He will benefit from skilled PT to address these limitations. Plan of Care Interventions Electrical Stimulation,Hot Pack/Cold Pack,Manual Therapy,Neuro Re-education,Patient/Caregiver Education,Therapeutic Activities,Therapeutic Exercise PT Services Indicated Yes Treatment Frequency and 2 times a week for 8 visits Duration These treatments will address the objective and functional deficits as defined above. The patient will be advanced safely and appropriately in order for the patient to progress towards his/her prior level of function. Additional exercises will be introduced and as well as a comprehensive home exercise program upon discharge, if needed, ?to ensure carryover of functional gains achieved in the clinic. This treatment plan has been reviewed and agreement upon by the patient.
--- NOTE | 2025-06-15 10:13 | OPREHPOC ---
Outpatient Therapy Plan of Care This is a Multidisciplinary Plan of Care that may contain components documented by all disciplines (PT, OT, and ST.) PT Problem 1 PT Problem #1 Knowledge Deficit PT Goal 1 Goal / Goal Update The patient will be independent in a home exercise program. Target Visit 2 Progress Met PT Problem 2 PT Problem #2 Impaired Functional Mobility PT Goal 1 Goal / Goal Update The patient will demonstrate 5% or less self perceived disability per the LEFS questionnaire. - not met The patient will ambulate 1,000 feet during the 6 MWT without left hip pain. -met Target Visit 8 Progress Partially Met PT Problem 3 PT Problem #3 Impaired Range of Motion PT Goal 1 Goal / Goal Update The patient will demonstrate at least 25 degrees left hip abduction AROM without pain noted to improve functional mobility. Target Visit 8 Progress Met PT Problem 4 PT Problem #4 Impaired Strength PT Goal 1 Goal / Goal Update The patient will demonstrate 4/5 or greater bilateral hip abduction strength to improve support for ambulation. Target Visit 8 Progress Met
--- NOTE | 2025-06-15 10:13 | PTOPDC ---
Assessment and note entered by Amanda Tim, PT Evaluation Information Assessment Status Discharge Diagnosis L ITB syndrome and trochanteric bursitis ICD-10 Condition Codes (PT) Pain in left hip M25.552 Other ICD-10 Condition Codes ( M76.32, M70.62 PT) Onset 04/26/25 Subjective Information Don reports his left hip pain has resolved with just an occasional twinge noted when he dons his pants. He has returned to all previous activity without pain. Reported Pain Level Pain Score 0: Self Report Pain Score Mild Pain: Hurtado Franco Assessment PT Clinical Summary Kirby Hannah has completed 8 skilled PT visits for left hip pain with a diagnosis of ITB syndrome and greater trochanteric bursitis. He reports his pain has significantly improved with an occasional twinge when donning his pants otherwise , he is pain free. He demonstrates improved and pain free left hip AROM, improved bilateral hip strength, pain free gait, and improved LE flexbility. He has met all but one goal and will be discharged to an independent [facility]. Plan of Care PT Services Indicated No
== END 2025-06-15 22:00 | disposition home or self-care (01) ==
LOC: CHSPT 09:05
PROVIDERS: Visit Provider Physician Assistant
DX: M76.32 Iliotibial band syndrome, left leg (principal); M70.62 Trochanteric bursitis, left hip
CPT/HCPCS: 97014; 97110; 97112; 97140; 97161; 97750; G0283